=== PATIENT | male | born 1955 | race Caucasian/White ===

== ENCOUNTER 2020-09-28 06:39 | Outpatient (REF) | payer OTHER, SELFPAY ==
[2020-09-28 07:50] LABS: Alanine Aminotransferase 41 U/L (0-40); Aspartate Amino Transferase 24 U/L (5-37); Cholesterol 168 mg/dL; HDL Cholesterol 48 mg/dL; LDL Cholesterol Calculated 104 mg/dl; Triglycerides 81 mg/dL
== END 2020-09-28 06:40 | disposition home or self-care (01) ==
LOC: HO.LAB 06:39
PROVIDERS: PCP Internal Medicine; Visit Provider Internal Medicine
DX: E78.2 Mixed hyperlipidemia (principal)
CPT/HCPCS: 36415; 80061; 84450; 84460

== ENCOUNTER 2021-09-07 07:17 | Day surgery (SDC) | payer OTHER, SELFPAY ==
[2021-08-31 12:51] VITALS: BMI 28.6
--- NOTE | 2021-09-06 14:03 | P.CONAN_ITS ---
Documented by User: Susan Staples NP 09/06/21 14:03 HPI - Anesthesia Eval Consult details Narrative: 66yo M for Colonoscopy [facility] Past Medical History Medical History (Updated 08/31/21 @ 12:47 by Cheryl Rasmussen RN) DVT (deep venous thrombosis) Elevated cholesterol GERD (gastroesophageal reflux disease) Surgical History Surgical History (Updated 08/31/21 @ 12:46 by Cheryl Rasmussen RN) H/O colonoscopy History of ankle surgery History of esophagogastroduodenoscopy (EGD) History of open reduction and internal fixation (ORIF) procedure History of surgical removal of pilonidal cyst Hx of appendectomy Hx of arthroscopic knee surgery Hx of nasal septoplasty Social History Social History Patient Tobacco Use Status: Tobacco use Unknown Advance Directives: No Advance Directives Information Provided: Yes Advance Directives on File: No Meds Allergies Allergy/AdvReac Type Severity Reaction Status Date / Time No Known Allergies Allergy Verified 09/07/21 06:04 [No Known Allergies*] Home Medications Medication Instructions Recorded Confirmed Last Taken Type omeprazole 20 mg capsule,delayed 20 mg PO DAILY 08/31/21 08/31/21 Unknown History release simvastatin 1 tab PO DAILY 08/31/21 08/31/21 Unknown History Exam Exam Date and Time: September 06, 2021 1403 Height,Weight and Vital Signs: Height 6 ft 1.5 in Weight 99.79 kg Assessment and Plan Assessment Anesthesia Assessment: Chart Reviewed Documented by User: Herberth Mayer MD 09/08/21 21:49 HPI - Anesthesia Eval Consult details Narrative: 66yo M for Colonoscopy DVT on anti coagulation for few months [facility] Past Medical History Medical History (Updated 08/31/21 @ 12:47 by Cheryl Rasmussen RN) DVT (deep venous thrombosis) Elevated cholesterol GERD (gastroesophageal reflux disease) Family History Family history of problems with anesthesia: No Surgical History Surgical History (Updated 08/31/21 @ 12:46 by Cheryl Rasmussen RN) H/O colonoscopy History of ankle surgery History of esophagogastroduodenoscopy (EGD) History of open reduction and internal fixation (ORIF) procedure History of surgical removal of pilonidal cyst Hx of appendectomy Hx of arthroscopic knee surgery Hx of nasal septoplasty History of Problems with Anesthesia: Yes (Ponv ) Social History Social History Patient Tobacco Use Status: Tobacco use Unknown Advance Directives: No Advance Directives Information Provided: Yes Advance Directives on File: No Meds Allergies Allergy/AdvReac Type Severity Reaction Status Date / Time No Known Allergies Allergy Verified 09/07/21 06:04 [No Known Allergies*] Home Medications Medication Instructions Recorded Confirmed Last Taken Type omeprazole 20 mg capsule,delayed 20 mg PO DAILY 08/31/21 08/31/21 Unknown History release simvastatin 1 tab PO DAILY 08/31/21 08/31/21 Unknown History Exam Airway Mallampati Class: III TM Dist: >3cm Neck ROM: Full Loose/Missing/Broken Teeth: Yes (Caps) Heart: rrr Lungs: bl breath sounds Assessment and Plan Assessment Anesthesia Assessment: Anesthesia Plan Discussed Final Anesthetic Review Family History of Problems with Anesthesia: No History of Problems with Anesthesia: Yes (Ponv ) NPO: Yes ASA Class: II Final Preanesthetic Review: Meds/Allgs Chart Reviewed, Consent Obtained/Reviewed and Anes Risks/Benef Reviewed Patient Risk: Intermediate Procedure Risk: Intermediate Anesthetic Plan Anesthetic Plan: MAC: Disposition: Standard PACU Documented by User: Ruthann Arreola MD 09/07/21 08:49 HPI - Anesthesia Eval Consult details Narrative: 66yo M for Colonoscopy DVT on anti coagulation for 5 months 7 years ago [facility] Past Medical History Medical History (Updated 08/31/21 @ 12:47 by Cheryl Rasmussen RN) DVT (deep venous thrombosis) Elevated cholesterol GERD (gastroesophageal reflux disease) Family History Family history of problems with anesthesia: Yes Surgical History Surgical History (Updated 08/31/21 @ 12:46 by Cheryl Rasmussen RN) H/O colonoscopy History of ankle surgery History of esophagogastroduodenoscopy (EGD) History of open reduction and internal fixation (ORIF) procedure History of surgical removal of pilonidal cyst Hx of appendectomy Hx of arthroscopic knee surgery Hx of nasal septoplasty Social History Social History Patient Tobacco Use Status: Tobacco use Unknown Advance Directives: No Advance Directives Information Provided: Yes Advance Directives on File: No Meds Allergies Allergy/AdvReac Type Severity Reaction Status Date / Time No Known Allergies Allergy Verified 09/07/21 06:04 [No Known Allergies*] Home Medications Medication Instructions Recorded Confirmed Last Taken Type omeprazole 20 mg capsule,delayed 20 mg PO DAILY 08/31/21 08/31/21 Unknown History release simvastatin 1 tab PO DAILY 08/31/21 08/31/21 Unknown History Assessment and Plan Final Anesthetic Review Family History of Problems with Anesthesia: Yes
[2021-09-07 07:19] VITALS: BP 162/91; PULSE 86; RESP 16; TEMP 36.6; O2SAT 98
[2021-09-07] MEDS: Lactated Ringers 1,000 ML 100 ML IVCONT (07:38)
--- NOTE | 2021-09-07 09:35 | P.BOP_ITS ---
Brief Operative Note Date of Service: 09/07/21 Pre-op diagnosis: Screening Post-op diagnosis: other (Colon polyp) Procedure: Colonoscopy to the cecum and TI with bx/removal of polyp. Surgeon: Toby Vizcaino Anesthesia: MAC Was an Senior Network Administrator used for this Procedure?: No Estimated blood loss (mL): 2.0 Pathology: other (A. Transverse colon polyp) Condition: stable Disposition: PACU
[2021-09-07 09:39] VITALS: BP 109/74; PULSE 63; RESP 17; TEMP 36.2; O2SAT 98
[2021-09-07 09:54] VITALS: BP 122/82; PULSE 66; RESP 18; TEMP 36.4; O2SAT 95
--- NOTE | 2021-09-07 10:04 | OP_ITS ---
SURGEON: Toby Vizcaino MD INDICATIONS: The patient presents for evaluation of personal history of tubular adenoma of the colon and colorectal cancer screening. Full consent has been obtained from him for this, including risks of bleeding and perforation. PREOPERATIVE DIAGNOSIS: Colorectal cancer screening and personal history of tubular adenoma of the colon. POSTOPERATIVE DIAGNOSIS: PROCEDURE PERFORMED: Colonoscopy to the cecum and terminal ileum with biopsy and removal of polyp. ESTIMATED BLOOD LOSS: COMPLICATIONS: ANESTHESIA: Medication used, monitored anesthesia care. ASSISTANTS: SPECIMENS: POSTOPERATIVE DIAGNOSES: Colorectal cancer screening and personal history of tubular adenoma of the colon, small colon polyp, diverticulosis, internal hemorrhoids. DESCRIPTION OF PROCEDURE: The patient was placed in the left lateral decubitus position. The digital rectal exam revealed no abnormalities. The Olympus video pediatric colonoscope was entered into the rectum and advanced easily to the cecum. Once in the cecum, I did identify normal-appearing cecal pouch with appendiceal orifice and a normal-appearing ileocecal valve. The terminal ileum was cannulated and appeared normal. Scope was withdrawn back in the colon. The entire cecum and ileocecal valve appeared normal. The scope was slowly withdrawn assessing all mucosal surfaces carefully. Preparation was excellent. In the transverse colon was an approximately 3 mm polyp, which was biopsied and completely removed with cold biopsy forceps. I did not visualize any other polyps, colitis, or angiodysplasia. There was a moderate amount of sigmoid diverticulosis. In the rectum, scope was retroflexed visualizing internal hemorrhoids, but no other pathology. The rectal mucosa appeared normal. The scope was straightened and withdrawn from the patient. He tolerated the procedure well and was returned to recovery area in stable condition. IMPRESSION: 1. Small colon polyp, status post biopsy and removal. 2. Diverticulosis. 3. Internal hemorrhoids. PLAN: The results of the biopsy will be checked. I would recommend a repeat colonoscopy in 5 years for further surveillance. He will otherwise see me on a p.r.n. basis. MD SANJAY Arnold/TREVOR / [id number]
--- NOTE | 2021-09-07 10:08 | PC.NURSE ---
OOB TO DRESS. AMBULATED TO BATHROOM SAFELY. NO COMPLAINTS.
== END 2021-09-07 10:21 | disposition home or self-care (01) ==
PROVIDERS: PCP Internal Medicine; Visit Provider Internal Medicine
PROC: 0DJD8ZZ Inspection of Lower Intestinal Tract, Via Natural or Artificial Opening Endoscopic (ICD-10-PCS; CPT 45378; principal; 2021-09-07 08:20)
DX: Z12.11 Encounter for screening for malignant neoplasm of colon (principal); Z86.010 Personal history of colon polyps; D12.3 Benign neoplasm of transverse colon; K57.30 Diverticulosis of large intestine without perforation or abscess without bleeding; K64.8 Other hemorrhoids; E78.5 Hyperlipidemia, unspecified; Z79.899 Other long term (current) drug therapy; Z86.718 Personal history of other venous thrombosis and embolism
CPT/HCPCS: 45380; 88305

== ENCOUNTER 2021-10-04 06:54 | Outpatient (REF) | payer OTHER, SELFPAY ==
[2021-10-04 07:16] LABS: MANUAL DIFF FLAG NO
[2021-10-04 07:35] LABS: Basophils Percent Auto 0.7 % (0-2); Eosinophils Absolute Auto 0.1 X10*3/uL (0.0-0.4); Eosinophils Percent Auto 1.4 % (0-4); Hematocrit 47.9 % (42.0-52.0); Hemoglobin 15.8 g/dl (14.0-18.0); Imm Gran Abs Auto 0.01 X10*3/uL (0.00-0.03); Imm Gran Pct Auto 0.2 % (0.0-0.4); Lymphocytes Absolute Auto 1.9 X10*3/uL (1.2-4.9); Lymphocytes Percent Auto 32.9 % (20-40); Mean Corpuscular Hemoglobin 31.9 pg (27.0-33.0); Mean Corpuscular Volume 96.8 fL (80.0-98.0); Mean Platelet Volume 10.4 fL (9.4-12.4); Monocytes Absolute Auto 0.5 X10*3/uL (0.1-1.2); Monocytes Percent Auto 9.2 % (2-11); Neutrophils Absolute Auto 3.2 x10*3/uL (2.0-8.3); Neutrophils Percent Auto 55.6 % (45-73); Platelet Count 271 X10*3/uL (160-400); Red Blood Count 4.95 X10*6/uL (4.60-5.80); Red Cell Distribution Width 12.2 % (11.0-16.0); White Blood Count 5.7 X10*3/uL (4.8-10.8)
[2021-10-04 07:53] LABS: Estimated Average Glucose 126 mg/dL
[2021-10-04 08:03] LABS: Alanine Aminotransferase 38 U/L (0-40); Albumin Level 4.3 g/dL (3.5-5.0); Alkaline Phosphatase 81 U/L (39-117); Anion Gap 11 (12-20); Aspartate Amino Transferase 23 U/L (5-37); Bilirubin Total 0.8 mg/dL (0.0-1.0); Blood Urea Nitrogen 19 mg/dL (9-16); Calcium 9.9 mg/dL (8.4-10.2); Carbon Dioxide 29 mmol/L (22-29); Chloride 106 mmol/L (96-108); Cholesterol 181 mg/dL; Estimated Glomerular Filt Rate > 60; Glucose Random 121 mg/dL (60-115); HDL Cholesterol 46 mg/dL; LDL Cholesterol Calculated 113 mg/dl; Potassium 5.3 mmol/L (3.3-5.1); Sodium 141 mmol/L (135-145); Total Protein 7.1 g/dL (6.5-8.0); Triglycerides 110 mg/dL
[2021-10-04 08:17] LABS: HIV AB/AG Nonreactive (Nonreactive); HIV Num 1 0.05 S/CO (0.00-0.99); ~HepC Num1 0.06 S/CO (0.00-0.79); ~Hepatitis C Antibody Nonreactive (Nonreactive)
[2021-10-04 08:24] LABS: Prostate Specific Antigen 1.29 ng/mL (<0.05-4.0); Thyroid Stimulating Hormone 1.48 uIU/mL (0.32-4.0)
[2021-10-04 09:03] LABS: Appearance Urine CLEAR; Color Urine YELLOW; Glucose Urine UA NEG (NEG); Leukocyte Esterase Urine NEG (NEG); Nitrite Urine NEG (NEG); PH 5.5 (5.0-8.0); Specific Gravity - Urine >= 1.030 (1.005-1.025); Urine Blood NEG (NEG); Urine Ketones NEG (NEG); Urine Protein NEG (NEG-TRACE)
== END 2021-10-04 06:55 | disposition home or self-care (01) ==
LOC: HO.LAB 06:54
PROVIDERS: PCP Internal Medicine; Visit Provider Internal Medicine
DX: Z12.5 Encounter for screening for malignant neoplasm of prostate (principal); Z11.4 Encounter for screening for human immunodeficiency virus [HIV]; Z11.59 Encounter for screening for other viral diseases; E78.00 Pure hypercholesterolemia, unspecified; R53.81 Other malaise; R53.83 Other fatigue; R35.1 Nocturia
CPT/HCPCS: 36415; 80053; 80061; 81003; 83036; 84153; 84443; 85025; 86803; 87086; 87389

== ENCOUNTER 2022-01-11 06:47 | Outpatient (REF) | payer OTHER, SELFPAY ==
[2022-01-11 07:36] LABS: Estimated Average Glucose 126 mg/dL
[2022-01-11 07:45] LABS: Anion Gap 10 (12-20); Blood Urea Nitrogen 15 mg/dL (9-16); Calcium 9.4 mg/dL (8.4-10.2); Carbon Dioxide 30 mmol/L (22-29); Chloride 104 mmol/L (96-108); Estimated Glomerular Filt Rate > 60; Glucose Random 111 mg/dL (60-115); Potassium 4.7 mmol/L (3.3-5.1); Sodium 139 mmol/L (135-145)
== END 2022-01-11 06:48 | disposition home or self-care (01) ==
LOC: HO.LAB 06:47
PROVIDERS: PCP Internal Medicine; Visit Provider Internal Medicine
DX: I10 Essential (primary) hypertension (principal); R73.01 Impaired fasting glucose
CPT/HCPCS: 36415; 80048; 83036

== ENCOUNTER 2022-02-16 10:11 | Outpatient (REF) | payer OTHER, SELFPAY ==
--- NOTE | ~2022-02-16 | XR_ITS ---
EXAMINATION: XR ABDOMEN COMPLETE CLINICAL INDICATION: Constipation. COMPARISON: None TECHNIQUE: 2 views of the abdomen. FINDINGS: There is a nonobstructive bowel gas pattern. Mild to moderate stool seen within the colon distally to the rectum. No abnormal calcifications are seen. Mild multilevel degenerative changes in the thoracolumbar spine and hips bilaterally. Left hip hardware appears intact. XR/XR acute abdomen series IMPRESSION: Nonobstructive bowel gas pattern. Mild to moderate colonic stool burden.
== END 2022-02-16 10:12 | disposition home or self-care (01) ==
LOC: HO.XRAY 10:11
PROVIDERS: PCP Internal Medicine; Visit Provider Internal Medicine
DX: K59.00 Constipation, unspecified (principal)
CPT/HCPCS: 74022

== ENCOUNTER 2022-03-08 11:28 | Outpatient (REF) | payer OTHER, SELFPAY ==
[2022-03-08 11:37] LABS: MANUAL DIFF FLAG NO
[2022-03-08 11:51] LABS: Basophils Absolute Auto 0.1 X10*3/uL (0.0-0.2); Basophils Percent Auto 0.9 % (0-2); Eosinophils Absolute Auto 0.1 X10*3/uL (0.0-0.4); Hematocrit 44.8 % (42.0-52.0); Hemoglobin 15.1 g/dl (14.0-18.0); Imm Gran Abs Auto 0.01 X10*3/uL (0.00-0.03); Imm Gran Pct Auto 0.2 % (0.0-0.4); Lymphocytes Absolute Auto 1.5 X10*3/uL (1.2-4.9); Lymphocytes Percent Auto 26.3 % (20-40); Mean Corpuscular HGB Conc 33.7 g/dl (31.0-36.0); Mean Corpuscular Hemoglobin 31.7 pg (27.0-33.0); Mean Corpuscular Volume 94.1 fL (80.0-98.0); Mean Platelet Volume 10.1 fL (9.4-12.4); Monocytes Absolute Auto 0.4 X10*3/uL (0.1-1.2); Neutrophils Absolute Auto 3.6 x10*3/uL (2.0-8.3); Neutrophils Percent Auto 63.6 % (45-73); Platelet Count 265 X10*3/uL (160-400); Red Blood Count 4.76 X10*6/uL (4.60-5.80); Red Cell Distribution Width 12.3 % (11.0-16.0); White Blood Count 5.6 X10*3/uL (4.8-10.8)
[2022-03-08 12:21] LABS: Alanine Aminotransferase 36 U/L (0-40); Albumin Level 4.1 g/dL (3.5-5.0); Alkaline Phosphatase 67 U/L (39-117); Anion Gap 14 (12-20); Aspartate Amino Transferase 25 U/L (5-37); Bilirubin Direct 0.5 mg/dL (0.0-0.5); Bilirubin Total 1.3 mg/dL (0.0-1.0); Blood Urea Nitrogen 16 mg/dL (9-16); Calcium 9.2 mg/dL (8.4-10.2); Carbon Dioxide 27 mmol/L (22-29); Chloride 105 mmol/L (96-108); Estimated Glomerular Filt Rate > 60; Glucose Random 156 mg/dL (60-115); Magnesium 1.9 mg/dL (1.6-2.6); Potassium 4.9 mmol/L (3.3-5.1); Sodium 141 mmol/L (135-145); Total Protein 6.9 g/dL (6.5-8.0)
[2022-03-08 12:44] LABS: T4 Thyroxine 6.1 ug/dL (4.5-12.0); Thyroid Stimulating Hormone 0.85 uIU/mL (0.32-4.0)
[2022-03-10 11:36] LABS: Immunoglobulin A 363 mg/dL (70-320)
[2022-03-10 12:36] LABS: Gliadin Deamidated IgA Ab <1.0 U/mL; Gliadin Deamidated IgG Ab <1.0 U/mL; Transglutaminase Ab IgG <1.0 U/mL; Transglutaminase IgA <1.0 U/mL
[2022-03-15 15:02] LABS: Endomysial IgA Antibody Negative (Negative)
== END 2022-03-08 11:29 | disposition home or self-care (01) ==
LOC: HO.LAB 11:28
PROVIDERS: PCP Internal Medicine; Visit Provider Internal Medicine
DX: K59.00 Constipation, unspecified (principal)
CPT/HCPCS: 36415; 80053; 82248; 82784; 83735; 84436; 84443; 85025; 86231; 86258; 86364

== ENCOUNTER 2022-10-17 06:22 | Outpatient (REF) | payer OTHER, SELFPAY ==
[2022-10-17 06:34] LABS: MANUAL DIFF FLAG NO
[2022-10-17 08:06] LABS: Basophils Absolute Auto 0.1 X10*3/uL (0.0-0.2); Basophils Percent Auto 1.2 % (0-2); Eosinophils Absolute Auto 0.1 X10*3/uL (0.0-0.4); Eosinophils Percent Auto 1.6 % (0-4); Hematocrit 44.4 % (42.0-52.0); Hemoglobin 14.7 g/dl (14.0-18.0); Imm Gran Abs Auto 0.01 X10*3/uL (0.00-0.03); Imm Gran Pct Auto 0.2 % (0.0-0.4); Lymphocytes Absolute Auto 1.9 X10*3/uL (1.2-4.9); Lymphocytes Percent Auto 36.5 % (20-40); Mean Corpuscular HGB Conc 33.1 g/dl (31.0-36.0); Mean Corpuscular Volume 96.5 fL (80.0-98.0); Mean Platelet Volume 10.9 fL (9.4-12.4); Monocytes Absolute Auto 0.5 X10*3/uL (0.1-1.2); Monocytes Percent Auto 9.4 % (2-11); Neutrophils Absolute Auto 2.6 x10*3/uL (2.0-8.3); Neutrophils Percent Auto 51.1 % (45-73); Platelet Count 263 X10*3/uL (160-400); Red Cell Distribution Width 12.6 % (11.0-16.0); White Blood Count 5.1 X10*3/uL (4.8-10.8)
[2022-10-17 08:40] LABS: Estimated Average Glucose 123 mg/dL; Hemoglobin A1c % 5.9 %
[2022-10-17 08:55] LABS: Appearance Urine Clear; Color Urine Yellow; Glucose Urine UA Negative (Negative); Leukocyte Esterase Urine Negative (Negative); Nitrite Urine Negative (Negative); PH 5.5 (5.0-9.0); Specific Gravity - Urine >= 1.030 (1.005-1.025); Urine Blood Negative (Negative); Urine Ketones Negative (Negative); Urine Protein Negative (Neg-Trace)
[2022-10-17 09:42] LABS: Alanine Aminotransferase 27 U/L (0-40); Albumin Level 4.1 g/dL (3.5-5.0); Alkaline Phosphatase 70 U/L (39-117); Anion Gap 12 (12-20); Aspartate Amino Transferase 20 U/L (5-37); Bilirubin Total 1.1 mg/dL (0.0-1.0); Blood Urea Nitrogen 18 mg/dL (9-16); Calcium 9.1 mg/dL (8.4-10.2); Carbon Dioxide 28 mmol/L (22-29); Chloride 107 mmol/L (96-108); Cholesterol 161 mg/dL; Estimated Glomerular Filt Rate > 60; Glucose Random 96 mg/dL (60-115); HDL Cholesterol 46 mg/dL; LDL Cholesterol Calculated 101 mg/dl; Potassium 4.5 mmol/L (3.3-5.1); Sodium 142 mmol/L (135-145); Total Protein 6.4 g/dL (6.5-8.0); Triglycerides 70 mg/dL
[2022-10-17 09:46] LABS: Prostate Specific Antigen Scr 0.88 ng/mL (<0.05-4.0); Thyroid Stimulating Hormone 1.61 uIU/mL (0.32-4.0)
== END 2022-10-17 06:23 | disposition home or self-care (01) ==
LOC: HO.LAB 06:22
PROVIDERS: PCP Internal Medicine; Visit Provider Internal Medicine
DX: G47.33 Obstructive sleep apnea (adult) (pediatric) (principal); E78.00 Pure hypercholesterolemia, unspecified; R73.01 Impaired fasting glucose; Z12.5 Encounter for screening for malignant neoplasm of prostate
CPT/HCPCS: 36415; 80053; 80061; 81003; 83036; 84153; 84443; 85025

== ENCOUNTER 2022-12-11 08:12 | Outpatient (REF) | payer OTHER, SELFPAY ==
[2022-12-11 08:38] LABS: MANUAL DIFF FLAG NO
[2022-12-11 09:05] LABS: Basophils Absolute Auto 0.1 X10*3/uL (0.0-0.2); Basophils Percent Auto 0.9 % (0-2); Eosinophils Absolute Auto 0.1 X10*3/uL (0.0-0.4); Eosinophils Percent Auto 1.1 % (0-4); Hematocrit 45.7 % (42.0-52.0); Hemoglobin 15.1 g/dl (14.0-18.0); Imm Gran Abs Auto 0.02 X10*3/uL (0.00-0.03); Imm Gran Pct Auto 0.4 % (0.0-0.4); Lymphocytes Absolute Auto 1.4 X10*3/uL (1.2-4.9); Lymphocytes Percent Auto 24.1 % (20-40); Mean Corpuscular Hemoglobin 31.3 pg (27.0-33.0); Mean Corpuscular Volume 94.8 fL (80.0-98.0); Mean Platelet Volume 10.6 fL (9.4-12.4); Monocytes Absolute Auto 0.5 X10*3/uL (0.1-1.2); Monocytes Percent Auto 8.8 % (2-11); Neutrophils Absolute Auto 3.6 x10*3/uL (2.0-8.3); Neutrophils Percent Auto 64.7 % (45-73); Platelet Count 257 X10*3/uL (160-400); Red Blood Count 4.82 X10*6/uL (4.60-5.80); Red Cell Distribution Width 12.2 % (11.0-16.0); White Blood Count 5.6 X10*3/uL (4.8-10.8)
== END 2022-12-11 08:13 | disposition home or self-care (01) ==
LOC: HO.LAB 08:12
PROVIDERS: PCP Internal Medicine; Visit Provider Internal Medicine
DX: R10.32 Left lower quadrant pain (principal)
CPT/HCPCS: 36415; 85025

== ENCOUNTER 2022-12-19 07:30 | Outpatient (REF) | payer OTHER, SELFPAY ==
[2022-12-19 08:46] LABS: Alanine Aminotransferase 26 U/L (0-40); Alkaline Phosphatase 67 U/L (39-117); Anion Gap 11 (12-20); Aspartate Amino Transferase 19 U/L (5-37); Bilirubin Total 1.1 mg/dL (0.0-1.0); Blood Urea Nitrogen 16 mg/dL (9-16); Calcium 9.3 mg/dL (8.4-10.2); Carbon Dioxide 27 mmol/L (22-29); Chloride 108 mmol/L (96-108); Estimated Glomerular Filt Rate > 60; Glucose Random 115 mg/dL (60-115); Potassium 4.6 mmol/L (3.3-5.1); Sodium 141 mmol/L (135-145); Total Protein 6.6 g/dL (6.5-8.0)
== END 2022-12-19 07:31 | disposition home or self-care (01) ==
LOC: HO.LAB 07:30
PROVIDERS: PCP Internal Medicine; Visit Provider Internal Medicine
DX: R10.32 Left lower quadrant pain (principal)
CPT/HCPCS: 36415; 80053

== ENCOUNTER 2022-12-21 08:22 | Outpatient (REF) | payer OTHER, SELFPAY ==
--- NOTE | ~2022-12-21 | CT_ITS ---
EXAMINATION: CT ABDOMEN AND PELVIS WITH CONTRAST CLINICAL INFORMATION: Diverticulitis COMPARISON: Previous CT of the abdomen and pelvis December 2016 TECHNIQUE: Multidetector volumetric images were obtained from the superior aspect of the liver through the pubic symphysis following administration 85 mL of Omnipaque 350 intravenous contrast. Sagittal and coronal reformatted images were obtained on the technologist's workstation. Oral contrast: Yes This CT examination was performed using dose optimization techniques as appropriate, variously including the following: *Automated exposure control *Adjustment of mA and/or kV according to patient size (this includes techniques or standardized protocols for targeted exams where dose is matched to indication/reason for exam; i.e. extremities or head) *Use of iterative reconstruction technique DLP: 500 mGy-cm FINDINGS: LUNG BASES: The visualized lung bases are unremarkable. LIVER, GALLBLADDER, AND BILIARY TREE: The liver is normal in size, shape, and attenuation. No focal hepatic lesion or biliary ductal dilatation is present. The gallbladder is unremarkable with no evidence of radiopaque gallstones, gallbladder wall thickening, or obvious pericholecystic inflammatory changes. PANCREAS: Unremarkable. SPLEEN: Unremarkable. ADRENAL GLANDS: Unremarkable. KIDNEYS AND URETERS: The kidneys are normal in size, shape, and attenuation. No hydronephrosis, hydroureter, or calculi seen. No perinephric stranding. BLADDER: Unremarkable. GASTROINTESTINAL TRACT: Diverticulosis. No evidence of diverticulitis. The small and large bowel are otherwise unremarkable. The appendix is not seen. ABDOMINAL WALL: No significant hernia is appreciated. LYMPH NODES: Normal. VASCULAR: Unremarkable. PELVIC VISCERA: Unremarkable. OSSEOUS STRUCTURES: Surgical hardware in the left proximal femur. Degenerative changes at the hip joints and spine. Small sclerotic lesion in the left iliac bone near the sacroiliac joint stable from [address]/CT abdomen pelvis w IV con IMPRESSION: Diverticulosis. No evidence of diverticulitis. Fleischner guidelines were followed.
[2022-12-21] MEDS: Barium Sulfate Oral (Berry) 450 ML ORAL.SUSP 900 ML PO (10:54)
[2022-12-21] MEDS: iohexoL 350 MG/ML 100 ML INFUS..BTL 85 ML IV (10:54)
== END 2022-12-21 08:23 | disposition home or self-care (01) ==
LOC: HO.CT 08:22
PROVIDERS: PCP Internal Medicine; Visit Provider Internal Medicine
DX: R10.32 Left lower quadrant pain (principal); K57.92 Diverticulitis of intestine, part unspecified, without perforation or abscess without bleeding; K59.00 Constipation, unspecified
CPT/HCPCS: 74177; Q9967

== ENCOUNTER 2023-10-01 07:15 | Outpatient (REF) | payer OTHER, SELFPAY ==
[2023-10-01 07:32] LABS: MANUAL DIFF FLAG NO
[2023-10-01 07:43] LABS: Appearance Urine Clear; Color Urine Yellow; Glucose Urine UA Negative (Negative); Leukocyte Esterase Urine Negative (Negative); Nitrite Urine Negative (Negative); Specific Gravity - Urine 1.025 (1.005-1.025); Urine Blood Negative (Negative); Urine Ketones Negative (Negative); Urine Protein Negative (Neg-Trace)
[2023-10-01 07:45] LABS: Basophils Absolute Auto 0.1 X10*3/uL (0.0-0.2); Basophils Percent Auto 0.8 % (0-2); Eosinophils Absolute Auto 0.1 X10*3/uL (0.0-0.4); Eosinophils Percent Auto 1.6 % (0-4); Hemoglobin 15.2 g/dl (14.0-18.0); Imm Gran Abs Auto 0.01 X10*3/uL (0.00-0.03); Imm Gran Pct Auto 0.2 % (0.0-0.4); Lymphocytes Absolute Auto 2.2 X10*3/uL (1.2-4.9); Lymphocytes Percent Auto 35.8 % (20-40); Mean Corpuscular HGB Conc 33.8 g/dl (31.0-36.0); Mean Corpuscular Hemoglobin 31.6 pg (27.0-33.0); Mean Corpuscular Volume 93.6 fL (80.0-98.0); Mean Platelet Volume 10.1 fL (9.4-12.4); Monocytes Absolute Auto 0.5 X10*3/uL (0.1-1.2); Monocytes Percent Auto 7.5 % (2-11); Neutrophils Absolute Auto 3.3 x10*3/uL (2.0-8.3); Neutrophils Percent Auto 54.1 % (45-73); Platelet Count 306 X10*3/uL (160-400); Red Blood Count 4.81 X10*6/uL (4.60-5.80); Red Cell Distribution Width 12.3 % (11.0-16.0); White Blood Count 6.2 X10*3/uL (4.8-10.8)
[2023-10-01 07:49] LABS: Estimated Average Glucose 120 mg/dL; Hemoglobin A1c % 5.8 % (<6.0)
[2023-10-01 08:13] LABS: Alanine Aminotransferase 30 U/L (0-40); Albumin Level 4.2 g/dL (3.5-5.0); Alkaline Phosphatase 71 U/L (39-117); Anion Gap 12 (12-20); Aspartate Amino Transferase 21 U/L (5-37); Bilirubin Total 1.1 mg/dL (0.0-1.0); Blood Urea Nitrogen 18 mg/dL (9-16); Calcium 9.5 mg/dL (8.4-10.2); Carbon Dioxide 30 mmol/L (22-29); Chloride 106 mmol/L (96-108); Cholesterol 160 mg/dL (<200); Estimated Glomerular Filt Rate > 60; Glucose Random 112 mg/dL (60-115); HDL Cholesterol 44 mg/dL (>40); LDL Cholesterol Calculated 98 mg/dL (<100); Potassium 4.7 mmol/L (3.3-5.1); Sodium 143 mmol/L (135-145); Total Protein 7.2 g/dL (6.5-8.0); Triglycerides 93 mg/dL (<150)
[2023-10-01 08:26] LABS: Prostate Specific Antigen Scr 0.94 ng/mL (<0.05-4.0)
[2023-10-01 08:30] LABS: Free T4 (Free Thyroxine) 0.94 ng/dL (0.71-1.85); Thyroid Stimulating Hormone 2.05 uIU/mL (0.32-4.0)
== END 2023-10-01 07:16 | disposition home or self-care (01) ==
LOC: HO.LAB 07:15
PROVIDERS: PCP Internal Medicine; Visit Provider Internal Medicine
DX: Z12.5 Encounter for screening for malignant neoplasm of prostate (principal); E78.00 Pure hypercholesterolemia, unspecified; R35.1 Nocturia; R73.01 Impaired fasting glucose
CPT/HCPCS: 36415; 80053; 80061; 81003; 83036; 84153; 84439; 84443; 85025

== ENCOUNTER 2024-11-04 07:11 | Outpatient (REF) | payer OTHER, MEDICARE, SELFPAY ==
[2024-11-04 07:53] LABS: Basophils Absolute Auto 0.1 X10*3/uL (0.0-0.2); Eosinophils Absolute Auto 0.1 X10*3/uL (0.0-0.4); Eosinophils Percent Auto 1.7 % (0-4); Hematocrit 43.3 % (42.0-52.0); Hemoglobin 14.5 g/dl (14.0-18.0); Imm Gran Abs Auto 0.01 X10*3/uL (0.00-0.03); Imm Gran Pct Auto 0.2 % (0.0-0.4); Lymphocytes Absolute Auto 1.9 X10*3/uL (1.2-4.9); Lymphocytes Percent Auto 32.6 % (20-40); MANUAL DIFF FLAG NO; Mean Corpuscular HGB Conc 33.5 g/dl (31.0-36.0); Mean Corpuscular Hemoglobin 32.2 pg (27.0-33.0); Mean Corpuscular Volume 96.2 fL (80.0-98.0); Mean Platelet Volume 10.3 fL (9.4-12.4); Monocytes Absolute Auto 0.6 X10*3/uL (0.1-1.2); Monocytes Percent Auto 9.8 % (2-11); Neutrophils Absolute Auto 3.2 x10*3/uL (2.0-8.3); Neutrophils Percent Auto 54.7 % (45-73); Platelet Count 254 X10*3/uL (160-400); White Blood Count 5.8 X10*3/uL (4.8-10.8)
[2024-11-04 08:20] LABS: Alanine Aminotransferase 30 U/L (0-40); Alkaline Phosphatase 80 U/L (39-117); Anion Gap 10 (12-20); Aspartate Amino Transferase 25 U/L (5-37); Bilirubin Total 0.8 mg/dL (0.0-1.0); Blood Urea Nitrogen 17 mg/dL (9-16); Calcium 9.2 mg/dL (8.4-10.2); Carbon Dioxide 27 mmol/L (22-29); Chloride 109 mmol/L (96-108); Cholesterol 143 mg/dL (<200); Estimated Glomerular Filt Rate > 60; Glucose Random 126 mg/dL (60-115); HDL Cholesterol 42 mg/dL (>40); LDL Cholesterol Calculated 83 mg/dL (<100); Potassium 4.4 mmol/L (3.3-5.1); Sodium 142 mmol/L (135-145); Total Protein 6.6 g/dL (6.5-8.0); Triglycerides 92 mg/dL (<150)
[2024-11-04 08:30] LABS: Estimated Average Glucose 128 mg/dL; Hemoglobin A1C 165.9787 umol/L; Hemoglobin A1c % 6.1 % (<6.0); Total Hemoglobin (HGBA1C) 3860.7199 umol/L
[2024-11-04 08:36] LABS: Prostate Specific Antigen Scr 1.66 ng/mL (<0.05-4.0)
== END 2024-11-04 07:12 | disposition home or self-care (01) ==
LOC: HO.LAB 07:11
PROVIDERS: PCP Internal Medicine; Visit Provider Internal Medicine
DX: R73.01 Impaired fasting glucose (principal); R35.1 Nocturia; Z13.220 Encounter for screening for lipoid disorders; Z12.5 Encounter for screening for malignant neoplasm of prostate
CPT/HCPCS: 36415; 80053; 80061; 83036; 84153; 85025

== ENCOUNTER 2025-04-01 21:45 | Emergency (ER) | payer OTHER, MEDICARE, SELFPAY ==
--- NOTE | ~2025-04-01 | US_ITS ---
CLINICAL HISTORY: torsion, severe left pain US scrotum with Doppler Comparison: None provided Findings: Right testicle is normal in size and echogenicity measuring 4.6 x 2.8 x 4 cm. There is normal color flow and arterial/venous spectral tracing in the right testicle. The right epididymis appears normal. There is a small right hydrocele. There is no right varicocele. Left testicle is normal in size and echogenicity measuring 4.3 x 2.5 x 3.1 cm. There is an incidental small left appendix testis measuring 3 mm. There is normal color flow and arterial/venous spectral tracing in the left testicle. There is an incidental small exophytic left epididymal cyst. Left epididymis appears otherwise normal. There is a small left hydrocele. There is no left varicocele. IMPRESSION: 1. No testicular torsion. 2. Small bilateral hydroceles. This document has been electronically signed by: Marco Watson MD on 04/02/2025 04:54:50
--- NOTE | ~2025-04-01 | CT_ITS ---
CLINICAL HISTORY: LLQ to left groin pain severe CT abdomen and pelvis with contrast Comparison: CT - CT ABDOMEN PELVIS W IV CON - 04/01/25 23:26 EDT Findings: There is mild atelectasis. There is coronary artery calcification. The liver, gallbladder, pancreas, spleen, adrenal glands, and kidneys are unremarkable. There is colonic diverticulosis. There is no acute diverticulitis. The gastrointestinal tract is otherwise unremarkable. There are no enlarged lymph nodes. The aorta is normal in diameter. There are degenerative changes in the lumbar spine. There is an old healed internally fixated proximal left femur fracture. There is no acute fracture or suspicious lytic or sclerotic lesion. IMPRESSION: 1. No acute abnormality in the abdomen or pelvis. 2. Chronic findings as above. This document has been electronically signed by: Marco Watson MD on 04/02/2025 01:38:04
--- OUTSIDE RECORDS SUMMARY | 2025-04-01 13:15 | XMS_ITS | Encounter Summary ---
Author Organization [facility] Address [address] [place] [address] Phone Care Team Providers Care Appeals Court Associate Justice Name Role Phone Jeremy Whalen MD Primary Care Provider [phone] Reason for Visit * Reason Comments Sick Visit Testicle Pain Left testicle starte d yesterday, sore Encounter Details Date Type Department Care Team (Late st Contact Info) Description 04/01/2025 1:15 PM EDT Office Visit [facility] Internal Medicine [address] [place] [address] Virgil Pelayo MD [address] [place] [address] [email or web address] Left testicular pain (Primary Dx) Social History Tobacco Use Types Packs/Day Years Used Date Smoking Tobacco: Never Smokeless Tobacco: Never Alcohol Use Standard Drinks/Week Comments Yes 7 (1 standard drink = 0.6 oz pur e alcohol) Child or Family Care Answer Date Record ed Do you have problems with on e of the following making it difficult for you to work, study, or receive health care? No 09/05/2024 Education Answer Date Recorded Are you interested in more education? Not on dimitri e 05/20/2024 Are you concerned about learning? Not on file 05/20/2024 No 05/20/2024 No 05/20/2024 Food Answer Date Recorded Within the past 6 months we worried whether our food would run out before we got money to buy more. Never True 09/05/2024 Within the past 6 months the food we bought just didn't last and we didn't have enough money to get more. Never True Residential Stability Answer Date Recor ded What is your housing situation today? I have mauro gonzalez 09/05/2024 How many times have you move d in the past 12 months? Zero (I did not move) 09/05/2024 Paying for Meds Answer Date Recorded Do you have trouble paying for medicines? No 09/05/2024 Paying Utility Bills Answer Date Record ed Do you have trouble paying your heating or elect ricity bill? No 09/05/2024 Transportation Answer Date Recorded Has the lack of transportati on kept you from medical appointments or from getting medications? No 09/05/2024 Unemployment Answer Date Recorded Are you currently unemployed or working on a part-time or temporary basis, and looking for work? No 05/19/2022 Digital Access Answer Date Recorded No 09/05/2024 Yes 09/05/2024 Do you have reliable internet access at home? Ye s 09/05/2024 Do you have a device (e.g., phone, tablet, computer) with a working camera? Yes 09/05/2024 Intimate Partner Violence Answer Date R ecorded Denied Basic Needs Not on file 09/05/2024 In the past 12 months have y ou been in a relationship with a person who hurts, threatens, or tries to control you? No 09/05/2024 Worried food would run out Not on file 09/05 In the past 12 months have y ou been in a relationship with a person who hurts, threatens, or tries to control you? No 09/05/2024 Sex and Gender Information Value Date Recorded Sex Assigned at Not on file Legal Sex Male 10:02 AM EDT Gender Identity Not on file Sexual Orientation Not on file documented as of this encounter Last Filed Vital Signs Vital Sign Reading Time Taken Comments Blood Pressure 112/74 04/01/2025 1:18 PM EDT Pulse 80 04/01/2025 1:18 PM EDT Temperature 36.3 C (97.3 F) 04/01/2025 1:18 PM EDT Respiratory Rate 16 04/01/2025 1:18 PM EDT Oxygen Saturation 98% 04/01/2025 1:18 PM EDT Inhaled Oxygen Concentration - - Weight 98.2 kg (216 lb 9.6 oz) 04/01/2025 1:18 P M EDT Height 185.9 cm (6' 1.19 ) 04/01/2025 1:18 PM ED T Body Mass Index 28.43 04/01/2025 1:18 PM EDT documented in this encounter Progress Notes * Virgil Pelayo MD - 04/01/2025 1:15 PM EDT Subjective: Patient ID: Arthur Mcdowell is a 69 y.o. male. This patient had on and off pain in the left testicle that seem to worsen with ambulation and improved with rest. 2 days ago it was not quite as bad and then yesterday is quite bad where it seemed wallace a little bit more constant. No problems with urination no urinary hesitancy frequency or nocturia. No blood in the urine. No flank pain. No fever or chills. Current Outpatient Medications Ordered in [facility]: atorvastatin (LIPITOR) 40 MG tablet, TAKE 1 TABLET BY MOUTH EVERY DAY pantoprazole (PROTONIX) 40 MG tablet, TAKE 1 TABLET (40 MG TOTAL) BY MOUTH 5 (FIVE) TIMES A WEEK. AT NIGHT. metroNIDAZOLE (ROSADAN) 0.75 % gel, Apply topically 2 (two) times a day. (Patient not taking: Reported on 04/01/2025) He continues on Lipitor for cholesterol, metronidazole for rosacea, pantoprazole for acid indigestion. Review of Systems Objective: Physical Exam Constitutional: General: He is not in acute distress. Appearance: Normal appearance. He is not ill-appearing, toxic-appearing or diaphoretic. Abdominal: General: Abdomen is flat. Palpations: Abdomen is soft. Tenderness: There is no rebound. Hernia: No hernia is present. Genitourinary: Penis: Normal. Testes: Normal. Comments: Negative for inguinal lymphadenopathy. Musculoskeletal: Right lower leg: No edema. Left lower leg: No edema. Skin: General: Skin is warm and dry. Findings: No bruising. Neurological: Mental Status: He is alert. Blood pressure 112/74, pulse 80, temperature 36.3 ??C (97.3 ??F), temperature source Temporal, resp. rate 16, height 185.9 cm (6' 1.19 ), weight 98.2 kg (216 lb 9.6 oz), SpO2 98%. Assessment/Plan: Problem List Items Addressed This Visit Left testicular pain - Primary Testicular pain, possibly epididymitis left-sided. Obtain ultrasounds of the scrotum with particular attention left-sided. Also today obtain CBC and CRP. If there are signs of epididymitis on ultrasound together with lab work will start antibiotic. For now treatment with Aleve 440 mg every 12 hoursas needed, cold packs 20 minutes on 10 minutes off. Relevant Orders US Scrotum C-Reactive Protein CBC documented in this encounter Miscellaneous Notes * Assessment & Plan Note - Virgil Pelayo MD - 04/01/2025 1:56 PM EDTAssociated Problem(s): Left testicular pain Testicular pain, possibly epididymitis left-sided. Obtain ultrasounds of the scrotum with particular attention left-sided. Also today obtain CBC and CRP. If there are signs of epididymitis on ultrasound together with lab work will start antibiotic. For now treatment with Aleve 440 mg every 12 hoursas needed, cold packs 20 minutes on 10 minutes off. documented in this encounter Plan of Treatment Upcoming Encounters Date Type Department Care Team (Late st Contact Info) Description 09/14/2025 8:30 AM EST Office Visit [facility] [place] Internal Medicine [address] [place] [phone] Jeremy Whalen MD [address] [place] [address] [email or web address] Scheduled Orders Name Type Priority Associated Diagnoses Orde r Schedule US Scrotum Imaging Routine Left testicular pain Expected: 04/02/2025, Expires: 07/01/2025 documented as of this encounter Results * (ABNORMAL) CBC (04/01/2025 1:57 PM EDT) WBC 5.56 4.00 - 11.00 K/uL [facility] RBC 4.57 4.50 - 5.90 M/uL [facility] HGB 14.7 13.5 - 17.5 g/dL [facility] HCT 44.0 41.0 - 53.0 % [facility] PLT 235 150 - 450 K/uL [facility] MCV 96.3 80.0 - 100.0 fL [facility] MCH 32.2(H) 27.0 - 31.0 pg [facility] MCHC 33.4 32.0 - 36.0 g/dL [facility] RDW 12.3 11.5 - 14.5 % [facility] MPV 10.9 8.4 - 12.0 fL [facility] NRBC 0.00 0.00 /100 WBCs [facility] ABSOLUTE NRBC 0.00 0.00 K/uL [facility] Blood 04/01/2025 1:57 PM EDT 04/01/2025 2:01 PM EDT Virgil Pelayo MD LAB BLOOD ORDERABLES Final Resul t Performing Organization Address City/[facility]/ZIP Co de Phone Number [address] [address] * C-Reactive Protein (04/01/2025 1:57 PM EDT) C REACTIVE PROTEIN <3.0 0.0 - 4.0 mg/L [facility] Blood 04/01/2025 1:57 PM EDT 04/01/2025 2:01 PM EDT Virgil Pelayo MD LAB BLOOD ORDERABLES Final Resul t Performing Organization Address City/[facility]/ZIP Co de Phone Number [address] [address] documented in this encounter Visit Diagnoses Diagnosis Left testicular pain- Primary documented in this encounter Additional Health Concerns Assessment Noted Time PHQ-2 Depression Total Score: 0 09/05/19 25 12:38 PM EST documented as of this encounter Care Teams Appeals Court Associate Justice Relationship Specialty Start Date End Date Jeremy Whalen MD [address] [place] [phone] [email or web address] PCP - General Internal Medicine 12/27/18 documented as of this encounter Additional Source Comments The information contained in this document represents components of the legal health record. It is not the complete legal health record.[facility]
--- OUTSIDE RECORDS SUMMARY | 2025-04-01 13:55 | XMS_ITS | Encounter Summary ---
Author Organization [facility] Address [address] [place] [phone] Phone Care Team Providers Care Design Cell Engineer Name Role Phone Jeremy Whalen MD Primary Care Provider [phone] Encounter Details Date Type Department Care Team (Late st Contact Info) Description 04/01/2025 1:55 PM EDT Hospital Encounter [facility] [address] [place] [address] Virgil Pelayo MD [address] [place] [address] [email or web address] Social History Tobacco Use Types Packs/Day Years [...] on file documented as of this encounter Plan of Treatment Upcoming Encounters Date Type Department Care Team (Late st Contact Info) Description 09/14/2025 8:30 AM EST Office Visit [facility] [place] Internal Medicine [address] [place] [address] Jeremy Whalen MD [address] [place] [address] [email or web address] documented as of this encounter Procedures Procedure Name Priority Date/Time Associated Diagnosis Comments CBC Routine 04/01/2025 1:57 PM EDT Left testicular pain C-REACTIVE PROTEIN Routine 04/01/2025 1: 57 PM EDT Left testicular pain documented in this encounter Results * C-Reactive Protein (04/01/2025 1:57 PM EDT) C REACTIVE PROTEIN <3.0 0.0 - 4.0 mg/L [facility] Blood 04/01/2025 1:57 PM EDT 04/01/2025 2:01 PM EDT us Virgil Pelayo MD LAB BLOOD ORDERABLES Final Resul t [address] [address] * (ABNORMAL) CBC (04/01/2025 1:57 PM EDT) WBC 5.56 4.00 - 11.00 K/uL [facility] RBC 4.57 4.50 - 5.90 M/uL [facility] HGB 14.7 13.5 - 17.5 g/dL [facility] HCT 44.0 41.0 - 53.0 % [facility] PLT 235 150 - 450 K/uL [facility] MCV 96.3 80.0 - 100.0 fL [facility] MCH 32.2(H) 27.0 - 31.0 pg [facility] MCHC 33.4 32.0 - 36.0 g/dL [facility] RDW 12.3 11.5 - 14.5 % [facility] MPV 10.9 8.4 - 12.0 fL [facility] NRBC 0.00 0.00 /100 WBCs [facility] ABSOLUTE NRBC 0.00 0.00 K/uL [facility] Blood 04/01/2025 1:57 PM EDT 04/01/2025 2:01 PM EDT us Virgil Pelayo MD LAB BLOOD ORDERABLES Final Resul t [facility] [address] [place] [address] documented in this encounter Visit Diagnoses Diagnosis Left testicular pain documented in this encounter Additional Health Concerns Assessment Noted Time PHQ-2 Depression Total Score: 0 09/05/19 25 12:38 PM EST documented as of this encounter Care Teams Design Cell Engineer Relationship Specialty Start Date End Date Jeremy Whalen MD [address] [place] [address] [email or web address] PCP - General Internal Medicine 12/27/18 documented as of this encounter Additional Source Comments The information contained in this document represents components of the legal health record. It is not the complete legal health record.[facility]
[2025-04-01 21:47] VITALS: BP 145/80; PULSE 64; RESP 18; TEMP 36.3; O2SAT 97; BMI 28.8
[2025-04-01 22:05] VITALS: BP 150/82; PULSE 68; RESP 16; TEMP 36.4; O2SAT 96
--- OUTSIDE RECORDS SUMMARY | 2025-04-01 22:06 | XMS_ITS | Patient Health Record ---
Author Organization [facility] Address [address] [place] [id number] Care Team Providers Care Surfboard Designer Name Role Phone Jeremy Whalen MD Primary Care Provider Toby Chong Unavailable [phone] Reason For Referral No Information Medications Medication SIG (Take, Route, Fr equency, Duration) Notes Start Date End Date Status Simvastatin Active Omeprazole 20 MG 1 capsule Orally Once a day 06/19 Active Immunizations Vaccine Route Administration Date Status Comme nts Influenza Unknown 04/22/2021 Administered Problems Problem Type SNOMED Code ICD Code Onset Dates Problem Status W/U Status Risk Notes Problem 955649428 Encounter for screening for malignant neoplasm of colon (Z12.11) Active confirmed Problem 643169930 History of adenomatous polyp of colon (Z86.010) Active confirmed Problem Constipation (88916515) Constipation (K59.00) Active confirmed Problem Change in bowel habit (31635041) Change in bowel habits (R19.4) Active confirmed Problem Screening for malignant neoplasm of rectum (839291759) Encounter for screening for malignant neoplasm of rectum (Z12.12) Active confirmed Problem 905340820 Gastroesophageal reflux disease without esophagitis (K21.9) Active confirmed Problem 005522484630770 Preprocedural examination (Z01.818) Active confirmed Problem Diverticulosis of colon (592173747) Diverticulosis of colon (K57.30) Active confirmed Plan Of Treatment Pending Test Test Name Order Date CHEM 7 PROFILE 02/20/2022 LIVER PROFILE 02/20/2022 TSH (THYROID STIMULATING HORMONE) 2021 CBC w DIFF 02/20/2022 CELIAC PANEL #10 02/20/2022 Calcium 02/20/2022 Magnesium 02/20/2022 T4 Thyroxine 02/20/2022 Future Test Test Name Order Date COLONOSCOPY 05/17/2016 COLONOSCOPY 08/02/2021 Insurance Providers Payer Name Payer Address Payer Phone Subscriber Number Group Number Insured Name Patient Relationship to Insured Coverage Start Date Coverage End Date [facility] [address] [place] [phone] [id number] [address] M[place] Self - patient is the insured Medical (General) History Medical History History ICD Code Hyperlipidemia Gastroesophageal reflux--upp er endoscopy in January of 2011 revealed a small to moderate-sized hiatal hernia, but no evidence of any significant esophagitis nor Davidson's esophagus--gastric biopsies were negative for H. pylori Tubular adenomas removed in 2005 and January 2011--also noted was diverticulosis and internal hemorrhoids Denies SD,DM,CVA,Lung disease,renal dise ase Hyperlipidemia DVT in left leg after his femur surgery in 2014--on Coumadin at that time Negative colonoscopy in 07/2016 Surgical History Surgery Date(Month/Year) Deviated septum Pilonidal cyst Appendectomy Broken left femur 08/2014 3 scopes on knees - Dr. Payne Tibia 1966
--- OUTSIDE RECORDS SUMMARY | 2025-04-01 22:06 | XMS_ITS | Clinical Summary ---
Author Organization [facility] Address [address] [facility] [address] [place] [address] Phone Care Team Providers Care Gage Designer Name Role Phone Jeremy Whalen MD Primary Care Provider [phone] Allergies No known active allergies Medications atorvastatin (LIPITOR) 40 MG tabletIndications: Mixed hyperlipidemia TAKE 1 TABLET BY MOUTH EVERY DAY 90 tablet 3 08/25/19 25 Active pantoprazole (PROTONIX) 40 MG tablet TAKE 1 TABLET (40 MG TOTAL) BY MOUTH 5 (FIVE) TIMES A WEEK. AT NIGHT. 60 tablet 3 11/19/19 25 Active metroNIDAZOLE (ROSADAN) 0.75 % gelIndications:Acn e rosacea Apply topically 2 (two) times a day. 45 g 02/24/20 25 Active Additional Information Patient not taking.Reported on 04/01/2025 Active Problems Problem Noted Date Diagnosed Date Left testicular pain 04/01/2025 Assessment & Plan (04/01/2025 1:56 PM EDT): Testicular pain, possibly epididymitis left-sided. Obtain ultrasounds of the scrotum with particular attention left-sided. Also today obtain CBC and CRP. If there are signs of epididymitis on ultrasound together with lab work will start antibiotic. For now treatment with Aleve 440 mg every 12 hours as needed, cold packs 20 minutes on 10 minutes off. Other insomnia 02/14/2023 Folliculitis barbae 05/15/2022 Assessment & Plan (05/15/2022 2:13 PM EDT): We will treat with doxycycline for at least 5 days but a total of 7 days if needed. Please be careful about the sunlight down in [place] regarding the doxycycline. It is photosensitive no get a bad sunburn. This is folliculitis so for right now hold off on shaving for about a week at least. Encounters Date Type Department Care Team Description 04/01/2025 1:55 PM EDT Hospital Encounter [facility] [address] [facility] [place] [address] Virgil Pelayo MD 04/01/2025 1:15 PM EDT Office Visit [facility] Internal Medicine [address] [place] [address] Virgil Pelayo MD Left testicular pain (Primary Dx) 04/01/2025 Telephone [facility] Internal Medicine [address] [facility] [place] [address] Jeremy Whalen MD Testicle Pain 02/23/2025 9:00 AM EDT Office Visit [facility] Internal Medicine [address] [place] [address] Jeremy Whalen MD Impaired fasting blood sugar (Primary Dx); Pure hypercholesterolemi a; Gastroesophageal reflux disease, unspecified whether esophagitis present; Acne rosacea 02/17/2025 Telephone [facility] Internal Medicine [address] [place] [address] Jeremy Whalen MD Results 02/09/2025 Documentation [facility] Internal Medicine [address] [place] [address] Jeremy Whalen MD from Last 3 Months Immunizations Immunization Administration Dates Next Due COVID-19 (Pre) Moderna Vaccine, Bivalent 6mo+ 05/01/2022 COVID-19 (Pre) Moderna Vaccine, mRNA, PF 10/11/2020,09/13/2020 INFLUENZA, SPLIT VIRUS, TRIV ALENT W/ PRESERVATIVE IM 04/22/2021,05/24/2015,09/12/2014 Influenza High-Dose Quadriva lent Preservative Free IM 05/22/2023,05/01/2022,04/07/2021 Influenza High-Dose Trivalen t Preservative Free IM 06/04/2024 Influenza Quadrivalent MDCK Preservative Free IM 06/22/2017 Influenza Quadrivalent Preservative Free IM 04/23 Influenza Quadrivalent w/ Preservative IM 2017,07/23/2017,05/15/2016 Influenza Recombinant Tanna valent Preservative Free IM 05/10/2020 Influenza Split (Incl. Purif ied Surface Antigen) 05/08/2013 Pneumococcal conjugate PCV20 05/19/2022 Pneumococcal polysaccharide PPSV23 04/25/2021 RSV Vaccine (bivalent) 06/12/2024 Tdap 05/31/2018 Zoster recombinant 05/10/2020,03/09/2020 Family History Medical History Relation Comments Heart disease Father Dementia Mother Relation Status Comments Brother Alive heart issues Father (Age 75) Mother (Age 93) Social History Tobacco Use Types Packs/Day Years Used Date Smoking Tobacco: Never Smokeless Tobacco: Never Tobacco Cessation:Counseling Given: Not Answered Alcohol Use Standard Drinks/Week Comments Yes 7 [...] your housing situation today? I have mauro sing 09/05/2024 How many times have you move [...] on file Sexual Orientation Not on file Last Filed Vital Signs Vital Sign Reading [...] Mass Index 28.43 04/01/2025 1:18 PM EDT Plan of Treatment Upcoming Encounters Date Type Department Care Team (Late st Contact Info) Description 09/14/2025 8:30 AM EST Office Visit [facility] [place] Internal Medicine [address] [place] [address] Jeremy Whalen MD [address] [place] [address] [email or web address] Health Maintenance Due Date Last Done Comments HEPATITIS A VACCINES (1 of 2 - Risk 2-dose series) 1974 COLOGUARD 2000 FIT TEST 2000 FOBT 2000 SIGMOIDOSCOPY 2000 VIRTUAL COLONOSCOPY 2000 INFLUENZA VACCINE (#1) 2025 , 05/22/2023, 05/01/2022, Additional history exists COVID-19 VACCINE ( season) 2025 06/12/2024, 05/01/2022, 10/31/2021, Additional history exists DEPRESSION SCREENING 09/05/2025 09/05/2024 COLONOSCOPY 09/07/2026 09/07/2021, 08/17/2016 COLORECTAL CANCER SCREENING 09/07/2026 SCREENING FOR DIABETES 11/05/2027 , 10/04/2021, 01/07/2020 Adult Td,Tdap Booster 05/31/2028 05/31/2018 LIPID PANEL 11/04/2029 11/04/2024, 10/21, 11/04/2024, Additional history exists ZOSTER VACCINES Completed 05/10/2020, 03/09/2020 HEPATITIS C SCREENING Completed 10/04/2021 PNEUMOCOCCAL VACCINES (50+ years) Completed 05/19/2022, 04/25/2021 RSV VACCINE Completed 06/12/2024 SMOKING STATUS SCREENING (Once After 26 Yrs) Completed 04/01/2025 HIB VACCINES Aged Out No longer eligi ble based on patient's age to complete this topic MENINGOCOCCAL VACCINES (ACWY) Aged Out No longer eligible based on patient's age to complete this topic MENINGOCOCCAL VACCINES (B) Aged Out N o longer eligible based on patient's age to complete this topic Medical Devices Not on file Procedures Procedure Name Priority Date/Time Associated Diagnosis Comments C-REACTIVE PROTEIN Routine 04/01/2025 1: 57 PM EDT Left testicular pain CBC Routine 04/01/2025 1:57 PM EDT Left testicular pain OUTSIDE HDL Routine 11/04/2024 OUTSIDE GLUCOSE FASTING Routine 10/04/2021 HEPATITIS C ANTIBODY, QUALITATIVE Routine 10/04/2021 HM COLONOSCOPY FOR RESULT ENTRY ONLY Routine 09/07/2021 from Last 3 Months or Most Recently Relevant to Health Maintenance Results * (ABNORMAL) CBC (04/01/2025 1:57 PM EDT) WBC 5.56 4.00 - 11.00 K/uL [facility] RBC 4.57 4.50 - 5.90 M/uL [facility] HGB 14.7 13.5 - 17.5 g/dL [facility] HCT 44.0 41.0 - 53.0 % [facility] PLT 235 150 - 450 K/uL [facility] MCV 96.3 80.0 - 100.0 fL [facility] MCH 32.2(H) 27.0 - 31.0 pg [facility] MCHC 33.4 32.0 - 36.0 g/dL [facility] RDW 12.3 11.5 - 14.5 % [facility] MPV 10.9 8.4 - 12.0 fL [facility] NRBC 0.00 0.00 /100 WBCs [facility] ABSOLUTE NRBC 0.00 0.00 K/uL [facility] Blood 04/01/2025 1:57 PM EDT 04/01/2025 2:01 PM EDT us Virgil Pelayo MD LAB BLOOD ORDERABLES Final Resul t [facility] [address] [place], [place] [id number] * C-Reactive Protein (04/01/2025 1:57 PM EDT) [facility] C REACTIVE PROTEIN <3.0 0.0 - 4.0 mg/L [facility] Blood 04/01/2025 1:57 PM EDT 04/01/2025 2:01 PM EDT Virgil Pelayo MD LAB BLOOD ORDERABLES Final Resul t Performing Organization Address City/[facility]/ZIP Co de Phone Number [facility] [address] [place] [address] * Outside HDL (11/04/2024) [facility] HDL - External 42 40 - 80 mg/dL EXTERNAL NON-INTERFACED REF LAB Result [facility] Historical Provider LAB BLOOD ORDERABLES Laura l Result Performing Organization Address City/[facility]/ZIP Co de Phone Number EXTERNAL NON-INTERFACED REF LAB * (ABNORMAL) Outside Glucose,Fasting (10/04/2021) [facility] Glucose, fasting - External 121(A) 65 - 99 mg/dL Result [facility] Historical Provider LAB BLOOD ORDERABLES Laura l Result * Hepatitis C antibody, qualitative (10/04/2021) Result [facility] Jeremy Whalen MD LAB BLOOD ORDERABLES Edited R esult - Final * COLONOSCOPY FOR RESULT ENTRY ONLY (09/07/2021) [facility] Colonoscopy 5 year recall Result [facility] Historical Provider HEALTH MAINTENANCE Final Result from Last 3 Months or Most Recently Relevant to Health Maintenance Insurance MEDICARE PART A & B MEDICARE SUPPLEMENT MEDICARE PART A & B MEDICARE SUPPLEMENT [facility] MEDICARE [place] [address] [place] [address] MEDICARE SUPPLEMENT MEDICARE PART A & B Member Subscriber Plan / Payer ( fective 2024-) Name:Jeremias Arthur Member ID:[id number] Relation to Subscriber:Self Name:Xavierdeanna Arthur Subscriber ID:[id number] Payer ID:[id number] Group ID:Not on file Type:Medicare [facility]: [facility] [address] [place] [address] [facility] MEDICARE SUPPLEMENT [facility] MEDICARE SUPPLEMENT MEDICARE PART A & B [facility] MEDICARE SUPPLEMENT MEDICARE PART A & B Member Subscriber Plan / Payer (Ef fective 2024-Present) Name:XavierArthur huerta Member ID:[id number] Relation to Subscriber:Self Name:Arthur Mcdowell Subscriber ID:[id number] Payer ID:[id number] Group ID:Not on file Type:Medicare Address: [employer] [address] MEDICARE SUPPLEMENT MEDICARE PART A & B MEDICARE SUPPLEMENT Care Teams Gage Designer Relationship Specialty Start Date End Date Jeremy Whalen MD [address] [place] [address] [email or web address] PCP - General Internal Medicine 12/27/18 Additional Source Comments The information contained in this document represents components of the legal health record. It is not the complete legal health record.[facility]
--- OUTSIDE RECORDS SUMMARY | 2025-04-01 22:06 | XMS_ITS | Encounter Summary ---
Author Organization [facility] Address [address] [facility] [address] [place] [address] Phone Care Team Providers Care Set Up Mechanic Name Role Phone Jeremy Whalen MD Primary Care Provider [phone] Reason for Visit * Reason Onset Date Comments Testicle Pain 04/01/2025 Encounter Details Date Type Department Care Team (Late st Contact Info) Description 04/01/2025 Telephone [employer] [facility] Internal Medicine [address] [place], [place] [phone] Jeremy Whalen MD [address] [place] [address] [email or web address] Testicle Pain Social History Tobacco Use Types Packs/Day Years [...] on file documented as of this encounter Progress Notes * Kathryn Ridley, JENNIFER - 04/01/2025 11:47 AM EDT Spoke to Arthur, States he's had left testicular pain for the last 2 days. Worst when sitting or laying down. No redness or swelling, no warmth to the touch. No lumps or bumps. No recent increased exertion/lifting. States he was in too much pain to go for his walk today. Scheduled today at [address] Pelayo for eval. He is appreciative. * Claudia Webber - 04/01/2025 11:44 AM EDT Patient called in, he states since yesterday he has been having significant left testicular pain. States he does not know what he could have done to bring this one states when he is sitting he has pain and it gets better once her is up and walk. Please advise. documented in this encounter Plan of Treatment Upcoming Encounters Date Type Department Care Team (Late st Contact Info) Description 09/14/2025 8:30 AM EST Office Visit [facility] Internal Medicine [address] [place] [address] Jeremy Whalen MD [address] [place] [address] [email or web address] documented as of this encounter Visit Diagnoses Not on filedocumented in this encounter Additional Health Concerns Assessment Noted Time PHQ-2 Depression Total Score: 0 09/05/19 25 12:38 PM EST documented as of this encounter Care Teams Set Up Mechanic Relationship Specialty Start Date End Date Jeremy Whalen MD [address] [place] [address] [email or web address] PCP - General Internal Medicine 12/27/18 documented as of this encounter Additional Source Comments The information contained in this document represents components of the legal health record. It is not the complete legal health record.[facility]
--- OUTSIDE RECORDS SUMMARY | 2025-04-01 22:06 | XMS_ITS | Encounter Summary ---
Author Organization [facility] Address [address] [facility] [address] [place] [address] Phone Care Team Providers Care Lathmaker Name Role Phone Jeremy Whalen MD Primary Care Provider Reason for Visit * Reason Onset Date Comments Abdominal Discomfort 12/01/2022 Constipation 12/01/2022 Abdominal Pain 12/01/2022 Encounter Details Date Type Department Care Team (Late st Contact Info) Description 12/01/2022 Nurse Triage [facility] Internal Medicine [address] [place] [address] Jeremy Whalen MD [address] [place] [address] [email or web address] Abdominal Discomfort; Constipation (/); Abdominal Pain Social History Tobacco Use Types Packs/Day Years Used Date Smoking Tobacco: Never Smokeless Tobacco: Never Alcohol Use Standard Drinks/Week Comments Yes 12 (1 standard drink = 0.6 oz pu re alcohol) Child or Family Care Answer Date Record ed Do you have problems with on e of the following making it difficult for you to work, study, or receive health care? No 05/19/2022 Education Answer Date Recorded Are you interested in help w ith more adult education (for example, completing high school, GED, job training, learning the Malay language, technical skills, or developing parenting skills)? No 05/19/2022 Food Answer Date Recorded Within the past 6 months we worried whether our food would run out before we got money to buy more. Never True 05/19/2022 Within the past 6 months the food we bought just didn't last and we didn't have enough money to get more. Never True Residential Stability Answer Date Recor ded What is your housing situation today? I have mauro gonzalez 05/19/2022 How many times have you move d in the past 12 months? Zero (I did not move) 05/19/2022 Paying for Meds Answer Date Recorded Do you have trouble paying for medicines? No 05/19/2022 Paying Utility Bills Answer Date Record ed Do you have trouble paying your heating or elect ricity bill? No 05/19/2022 Transportation Answer Date Recorded Has the lack of transportati on kept you from medical appointments or from getting medications? No 05/19/2022 Unemployment Answer Date Recorded Are you currently unemployed or working on a part-time or temporary basis, and looking for work? No 05/19/2022 Sex and Gender Information Value Date Recorded Sex Assigned at Not on file Legal Sex Male 10:02 AM EDT Gender Identity Not on file Sexual Orientation Not on file documented as of this encounter Progress Notes * Kady Estrada, JENNIFER - 12/01/2022 2:39 PM EDT Pt has had abdominal pain on and off for the past 3 weeks. He has constipation on and off. Pt also states he has gas that is obnoxious. States last time pt had a BM was a few hours ago. Stool is soft. No blood. Pt currently does not have abdominal pain. Pt last had abdominal pain in the last week. Pt takes stool softener. Pt denies nausea. Stomach is not distended. Scheduled pt for next availablein 1 week. Stated if abdominal pain comes back or symptoms worsen to call. Pt voiced understanding Nurse Triage Encounter Note Reason for Triage Arthur Mcdowell contacted office for Other,Constipation,Abdominal Pain Call Disposition Schedule Visit Within 2 Business Days Patient/caregiver understands and will follow disposition: Yes Patient/caregiver understands and will follow care advice: Yes, Plans To Follow Advice Disposition Comments: Protocols used: Abdominal Pain - Bdua-Nltfe-Ma Initial Symptom Screening and Assessment IA None Care Advice Given Care Advice Patient/Caregiver understands and will follow care advice?: Yes, plans to follow advice SEE IN OFFICE TODAY OR TOMORROW: * You need to be examined. Let me give you an appointment. * IF NO AVAILABLE OFFICE APPOINTMENTS: You need to be seen in an Urgent Care Center. Go to the one at [facility]. Go there today. A nearby Urgent Care Center is often a good source of care. REST: * Lie down. * Rest until you feel better. DRINK CLEAR FLUIDS: * Drink clear fluids only (e.g., water, flat soft drinks or half-strength Gatorade). * Sip small amounts at a time, until you feel better and the pain is gone. * Then slowly return to a regular diet. DIET: * Slowly advance diet from clear liquids to a bland diet. * Avoid alcohol or caffeinated beverages. * Avoid greasy or fatty foods. Patient will call back with additional questions or if symptoms change or worsen Kady Estrada RN Reason for Disposition and Assessment Reason for Disposition ??? MILD pain (e.g., does not interfere with normal activities) and pain comes and goes (cramps) lasts > 48 hours (Exception: This same abdominal pain is a chronic symptom recurrent or ongoing ANDpresent > 4 weeks.) Protocols used: ABDOMINAL PAIN - [id number] * Jami Moore - 12/01/2022 2:08 PM EDT Pt called stating he is experiencing abdominal discomfort with a lot of gas and constipation on andoff. Pt stated he has been experiencing this for the past 3 weeks and has been trying to decrease his Murelax intake. Pt requested an appointment, no appointments available soon. documented in this encounter Plan of Treatment Upcoming Encounters Date Type Department Care Team (Late st Contact Info) Description 09/14/2025 8:30 AM EST Office Visit [facility] Internal Medicine [address] [place] [address] Jeremy Whalen MD [address] [place] [address] documented as of this encounter Visit Diagnoses Not on filedocumented in this encounter Additional Health Concerns Assessment Noted Time PHQ-2 Depression Total Score: 0 10/24/19 23 8:32 AM EDT documented as of this encounter Care Teams Lathmaker Relationship Specialty Start Date End Date Jeremy Whalen MD [address] [place] [address] [email or web address] PCP - General Internal Medicine 12/27/18 documented as of this encounter Additional Source Comments The information contained in this document represents components of the legal health record. It is not the complete legal health record.[facility]
[2025-04-01 23:09] LABS: MANUAL DIFF FLAG NO
[2025-04-01 23:10] LABS: Hematocrit 42.9 % (42.0-52.0); Hemoglobin 15.1 g/dl (14.0-18.0); Imm Gran Abs Auto 0.02 X10*3/uL (0.00-0.03); Imm Gran Pct Auto 0.3 % (0.0-0.4); Lymphocytes Absolute Auto 1.7 X10*3/uL (1.2-4.9); Mean Corpuscular HGB Conc 35.2 g/dl (31.0-36.0); Mean Corpuscular Hemoglobin 32.5 pg (27.0-33.0); Mean Corpuscular Volume 92.5 fL (80.0-98.0); NRBC Abs Auto 0.000 X10*3/uL (0.0-0.012); NRBC Pct Auto 0.0 /100WBC (0.0-0.2); Platelet Count 247 X10*3/uL (160-400); Red Blood Count 4.64 X10*6/uL (4.60-5.80); White Blood Count 6.0 X10*3/uL (4.8-10.8)
[2025-04-01 23:18] LABS: Appearance Urine Clear; Glucose Urine UA Negative (Negative); PH 5.5 (5.0-9.0); Specific Gravity - Urine 1.025 (1.005-1.025)
[2025-04-01 23:35] LABS: Alanine Aminotransferase 40 U/L (0-40); Albumin Level 4.3 g/dL (3.5-5.0); Alkaline Phosphatase 90 U/L (39-117); Anion Gap 13 (12-20); Aspartate Amino Transferase 29 U/L (5-37); Blood Urea Nitrogen 16 mg/dL (9-16); Calcium 8.8 mg/dL (8.4-10.2); Carbon Dioxide 26 mmol/L (22-29); Chloride 108 mmol/L (96-108); Creatinine Clr Calc Pharmacy 92.7; Estimated Glomerular Filt Rate > 60; Magnesium 2.0 mg/dL (1.6-2.6); Potassium 4.5 mmol/L (3.3-5.1); Sodium 142 mmol/L (135-145); Total Protein 7.2 g/dL (6.5-8.0)
[2025-04-02 00:04] VITALS: BP 150/68; PULSE 74; RESP 20; TEMP 36.4; O2SAT 97
[2025-04-02] MEDS: iohexoL 350 MG/ML 100 ML INFUS..BTL 85 ML IV (00:54)
[2025-04-02 02:15] VITALS: BP 156/87; PULSE 77; RESP 16; O2SAT 98
[2025-04-02] MEDS: diazePAM 10 MG/2 ML CARTRIDGE 5 MG IVPUSH (02:16)
[2025-04-02 04:00] VITALS: BP 161/85; PULSE 68; RESP 16; TEMP 36.7; O2SAT 97
--- NOTE | 2025-04-02 05:04 | ED.GENADULT ---
HPI - General Adult General Chief complaint: General Medical Stated complaint: lt groin pain Time Seen by Provider: 04/01/25 22:16 Source: patient Limitations: no limitations History of Present Illness ED Provider: Cheryl Nunez PA-C HPI narrative: 69-year-old male with a history of hyperlipidemia and GERD presents with left groin pain for 2-3 days. Pain originates in left groin/inguinal region with radiation to the testicle at times. He does not have swelling, redness of the testicle. Denies dysuria, hematuria, penile discharge or fever. Denies mid back pain, flank pain or abdominal pain. No nausea vomiting. Associated paresthesia of anterior left lower extremity. Denies urinary retention, bowel incontinence or weakness of lower extremity. Patient is physically active, he can not recall a new activity, or new heavy lifting, no trauma that could have precipitated his symptoms. Related Data Home Medications ?Medication ?Instructions ?Recorded ?Confirmed omeprazole 20 mg capsule,delayed 20 mg PO DAILY 08/31/21 08/31/21 release simvastatin 1 tab PO DAILY 08/31/21 08/31/21 Previous Rx's ?Medication ?Instructions ?Recorded hydromorphone 2 mg tablet 2 mg PO Q6H PRN pain, severe #12 04/02/25 (Dilaudid) tabs ketorolac 10 mg tablet 10 mg PO Q6H PRN pain #20 tabs 04/02/25 methocarbamol 750 mg tablet 1,500 mg (2 x 750 mg) PO Q8H PRN 04/02/25 pain, moderate #24 tabs methylprednisolone 4 mg tablets in 4 mg PO QAM #21 ea 04/02/25 a dose pack (Medrol (Cesar)) Allergies Allergy/AdvReac Type Severity Reaction Status Date / Time No Known Allergies (No Known Allergy Verified 04/01/25 21:49 Allergies*) Review of Systems Review of Systems: Yes all other systems are reviewed and are negative Constitutional: Constitutional: Denies fatigue and Denies fever(s) Cardiovascular: Cardiovascular: Denies chest pain and Denies dyspnea Respiratory: Respiratory: Denies dyspnea Gastrointestinal: Gastrointestinal: Denies abdominal pain, Denies nausea and Denies vomiting Genitourinary: Genitourinary: Denies hematuria, Denies dysuria, Denies flank pain, Denies penile discharge, Denies scrotal swelling and Reports testicular pain Musculoskeletal: Musculoskeletal: Reports back pain, Denies muscle weakness, Denies numbness and Reports radiating pain into limb Neurologic: Denies numbness Endocrine: Endocrine: Denies fatigue [facility] Past Medical History Attestation statement: The following information was validated with the patient. Medical History (Updated 04/03/25 @ 00:00 by Melanie Loyola) DVT (deep venous thrombosis) Elevated cholesterol GERD (gastroesophageal reflux disease) Surgical History (Updated 08/31/21 @ 12:46 by Cheryl Rasmussen RN) History of ankle surgery Hx of arthroscopic knee surgery History of surgical removal of pilonidal cyst Hx of appendectomy Hx of nasal septoplasty History of open reduction and internal fixation (ORIF) procedure History of esophagogastroduodenoscopy (EGD) H/O colonoscopy Social History Social History Patient Tobacco Use Status: Tobacco use Unknown Physical Exam ED Vital Signs: Vital Signs - 24 hr 04/01/25 21:47 04/01/25 22:05 04/02/25 00:04 Temperature 97.3 F 97.5 F 97.6 F Pulse Rate 64 68 74 Respiratory Rate 18 16 20 Blood Pressure 145/80 H 150/82 H 150/68 H Pulse Oximetry 97 96 97 Oxygen Delivery Method Room Air Room Air Room Air 04/02/25 02:15 04/02/25 04:00 Temperature 98.0 F Pulse Rate 77 68 Respiratory Rate 16 16 Blood Pressure 156/87 H 161/85 H Pulse Oximetry 98 97 Oxygen Delivery Method Room Air Room Air BMI result Body Mass Index 28.8 Const Other: Alert, appears extremely uncomfortable Orientation/consciousness: patient oriented x3 Resp Effort & Inspection: normal respiratory effort Cardio Other: Normal peripheral perfusion GI Other: No pain across the lower abdomen no distention no guarding General: Yes no CVA tenderness Back/Spine/Pelvis Back: no CVA tenderness Skin Other: Warm dry no rash Neuro General: patient oriented x3, gait normal, no focal motor deficits and CN's II-XI intact bilaterally Extrem Other: Strength 5/5 bilateral lower extremities normal gait Psych Other: Cooperative Course Reevaluation(s) Reevaluation #1: Patient's pain is still poorly controlled, increasing the amount of analgesia based medication Reevaluation #2: Patient's pain stool is controlled CT back is unremarkable he has some arthritic changes, his pain is out of proportion, he is now stating he is having discrete testicle pain, now I will order an ultrasound adding additional pain medication Medications Administered Discontinued Medications Generic Name Dose Route Start Last Admin Trade Name Zahra PRN Reason Stop Dose Admin Diazepam 5 mg 04/02/25 02:11 04/02/25 02:16 Diazepam 10 Mg/2 Ml Cartridge IVPUSH 04/02/25 02:12 5 mg STAT STA Administration Hydromorphone HCl 1 mg 04/02/25 03:36 04/02/25 03:54 Hydromorphone Hcl 1 Mg/Ml Syringe IVPUSH 04/02/25 03:37 1 mg ONCE ONE Administration Protocol Sodium Chloride 500 mls @ 500 mls/hr 04/01/25 22:56 04/02/25 00:11 Ns IV 04/01/25 23:55 Infused .Q1H ONE Infusion Iohexol 85 ml 04/02/25 00:54 04/02/25 00:54 Iohexol 350 Mg/Ml 100 Ml Infus..Btl IV 04/02/25 00:55 85 ml ONCE ONE Administration Ketorolac Tromethamine 15 mg 04/01/25 22:56 04/01/25 23:09 Ketorolac Tromethamine 15 Mg/Ml Vial IVPUSH 04/01/25 22:57 15 mg ONCE ONE Administration Morphine Sulfate 4 mg 04/01/25 22:56 04/01/25 23:09 Morphine Sulfate 4 Mg/Ml Cartridge IVPUSH 04/01/25 22:57 4 mg ONCE ONE Administration Protocol Morphine Sulfate 6 mg 04/01/25 23:59 04/02/25 00:05 Morphine Sulfate 10 Mg/Ml Cartridge IVPUSH 04/02/25 00:00 6 mg ONCE ONE Administration Protocol Ondansetron HCl 4 mg 04/01/25 22:56 04/01/25 23:09 Ondansetron Hcl 4 Mg/2 Ml Vial IVPUSH 04/01/25 22:57 4 mg ONCE ONE Administration Medical Decision Making Medical Decision Making MDM Narrative: 69-year-old male with a history of hyperlipidemia and GERD presents with left groin pain for 2-3 days. Pain originates in left groin/inguinal region with radiation to the testicle at times. He does not have swelling, redness of the testicle. Denies dysuria, hematuria, penile discharge or fever. Denies mid back pain, flank pain or abdominal pain. No nausea vomiting. Associated paresthesia of anterior left lower extremity. Denies urinary retention, bowel incontinence or weakness of lower extremity. Patient is physically active, he can not recall a new activity, or new heavy lifting, no trauma that could have precipitated his symptoms. Problem: Nothing relevant History: Per patient I have considered the following differential diagnoses: Lumbar radiculopathy/sciatica, cauda equina, torsion, renal colic Plan: The patient is here with lumbar radicular symptoms, without red flag signs symptoms concerning for cord compression, he has no mechanism of injury. Given distribution of discomfort with radiation to the testicle, I am also considering renal colic, however, he has not had mid back pain no flank pain, no hematuria dysuria or history of kidney stones. I will obtain a dry scan, this will capture of the lumbar region as well. Giving analgesia. Screening labs completed, I just need a urine sample. He is having referred pain to the testicle, without any swelling redness or erythema to suggest infection versus torsion, I do not feel he requires a testicular ultrasound at this time. I have independently reviewed the following tests: Labs: No leukocytosis, not anemic, no electrolyte abnormality, urine not infected CT abd/pelvis: Findings: There is mild atelectasis. There is coronary artery calcification. The liver, gallbladder, pancreas, spleen, adrenal glands, and kidneys are unremarkable. There is colonic diverticulosis. There is no acute diverticulitis. The gastrointestinal tract is otherwise unremarkable. There are no enlarged lymph nodes. The aorta is normal in diameter. There are degenerative changes in the lumbar spine. There is an old healed internally fixated proximal left femur fracture. There is no acute fracture or suspicious lytic or sclerotic lesion. IMPRESSION: 1. No acute abnormality in the abdomen or pelvis. 2. Chronic findings as above. scrotal US: Findings: Right testicle is normal in size and echogenicity measuring 4.6 x 2.8 x 4 cm. There is normal color flow and arterial/venous spectral tracing in the right testicle. The right epididymis appears normal. There is a small right hydrocele. There is no right varicocele. Left testicle is normal in size and echogenicity measuring 4.3 x 2.5 x 3.1 cm. There is an incidental small left appendix testis measuring 3 mm. There is normal color flow and arterial/venous spectral tracing in the left testicle. There is an incidental small exophytic left epididymal cyst. Left epididymis appears otherwise normal. There is a small left hydrocele. There is no left varicocele. IMPRESSION: 1. No testicular torsion. 2. Small bilateral hydroceles. Differential Diagnosis Differential Diagnoses: The differential diagnosis associated with the presentation includes See medical decision-making Admission/Observation Consideration of admission/observation: Escalation of care including admission/observation considered Not applicable Lab Data MDM Lab Attestation statement: I reviewed the patient's lab results. 04/01/25 23:02 04/01/25 23:02 Labs: Lab Results 04/01/25 Range/Units 23:02 WBC 6.0 (4.8-10.8) X10*3/uL RBC 4.64 (4.60-5.80) X10*6/uL Hgb 15.1 (14.0-18.0) g/dl Hct 42.9 (42.0-52.0) % MCV 92.5 (80.0-98.0) fL MCH 32.5 (27.0-33.0) pg MCHC 35.2 (31.0-36.0) g/dl RDW 12.3 (11.0-16.0) % Plt Count 247 (160-400) X10*3/uL MPV 10.2 (9.4-12.4) fL Immature Gran % (Auto) 0.3 (0.0-0.4) % Neut % (Auto) 61.8 (45-73) % Lymph % (Auto) 28.4 (20-40) % [place] % (Auto) 7.0 (2-11) % Eos % (Auto) 1.7 (0-4) % Baso % (Auto) 0.8 (0-2) % Lymph # (Auto) 1.7 (1.2-4.9) X10*3/uL [place] # (Auto) 0.4 (0.1-1.2) X10*3/uL Eos # (Auto) 0.1 (0.0-0.4) X10*3/uL Baso # (Auto) 0.1 (0.0-0.2) X10*3/uL Abs Immat Gran (auto) 0.02 (0.00-0.03) X10*3/uL Absolute Neuts (auto) 3.7 (2.0-8.3) x10*3/uL Absolute Nucleated RBC 0.000 (0.0-0.012) X10*3/uL Nucleated RBC % (auto) 0.0 (0.0-0.2) /100WBC Sodium 142 (135-145) mmol/L Potassium 4.5 (3.3-5.1) mmol/L Chloride 108 (96-108) mmol/L Carbon Dioxide 26 (22-29) mmol/L Anion Gap 13 (12-20) BUN 16 (9-16) mg/dL Creatinine 0.93 (0.5-1.4) mg/dL Estim Creat Clear Calc 92.7 Estimated GFR > 60 Random Glucose 154 H (60-115) mg/dL Calcium 8.8 (8.4-10.2) mg/dL Magnesium 2.0 (1.6-2.6) mg/dL Total Bilirubin 0.7 (0.0-1.0) mg/dL AST 29 (5-37) U/L ALT 40 (0-40) U/L Alkaline Phosphatase 90 (39-117) U/L Total Protein 7.2 (6.5-8.0) g/dL Albumin 4.3 (3.5-5.0) g/dL Urine Color Yellow Urine Appearance Clear Urine pH 5.5 (5.0-9.0) Ur Specific [place] 1.025 (1.005-1.025) Urine Protein Negative (Neg-Trace) mg/dL Urine Glucose (UA) Negative (Negative) mg/dL Urine Ketones Trace (Negative) mg/dL Urine Blood Negative (Negative) Urine Nitrite Negative (Negative) Ur Leukocyte Esterase Negative (Negative) Radiology Impression Discussion of test interpretation with radiology: I have reviewed the radiologist's reading. Discharge Plan Discharge Clinical Impression: Left groin pain Patient Disposition: Home, Self-Care Instructions: Groin Pain (ED) Additional Instructions: All of your screening labs including a urinalysis were completely normal. There were no acute findings on the CT scan of your abdomen and pelvis. You were found to have arthritic changes of the lumbar spine and in the region of your healed femur fracture. There were also no acute findings on the ultrasound of the scrotal contents. You were incidentally found to have bilateral hydroceles; these are benign fluid collections that do not cause pain, you likely have had them for quite some time. You are being treated for groin strain versus potential sciatica. Use the ketorolac as directed, this is an anti-inflammatory, take it with food. Take the Medrol Dosepak as directed this is a steroid taper, we are using this has a 2nd anti-inflammatory Use the Dilaudid only as needed, this is an opiate based pain medication, it may cause constipation, you should use [id number] Colace twice a day to help prevent constipation. Use the methocarbamol as needed for further pain, this is a muscle relaxant. Both the muscle relaxant and the Dilaudid can cause drowsiness, do not drive or operate machinery while taking this medication. You need to follow up with primary care. If your symptoms persist, you may require physical therapy. You may also require advanced imaging, an MRI, that would be scheduled as an outpatient. Prescriptions: New ketorolac 10 mg tablet 10 mg PO Q6H PRN (Reason: pain) Qty: 20 0RF Rx Instructions: maximum total duration of 5 days from all oral, intranasal, or parenteral formulations. The patient received an IV dose of Toradol here in the emergency room. methylprednisolone [Medrol (Cesar)] 4 mg tablets,dose pack 4 mg PO QAM Qty: 21 0RF Rx Instructions: Take per package instructions methocarbamol 750 mg tablet 1,500 mg PO Q8H PRN (Reason: pain, moderate) Qty: 24 0RF hydromorphone [Dilaudid] 2 mg tablet 2 mg PO Q6H PRN (Reason: pain, severe) Qty: 12 0RF Rx Instructions: Partial Fill upon patient request. No Action omeprazole 20 mg Capsule,Delayed Release(Dr/Ec) 20 mg PO DAILY simvastatin 1 tab PO DAILY Interventions: ED Discharge Assessment Last Done: 04/02/25 05:24 Discharge Date/Time: 04/02/25 05:24 Print Language: Hebrew
[2025-04-02 05:24] VITALS: BP 161/85; PULSE 68; RESP 16; TEMP 36.7; O2SAT 97
== END 2025-04-02 05:24 | disposition home or self-care (01) ==
PROVIDERS: Physician Assistant Medical; Emergency Provider Emergency Medicine; PCP Internal Medicine
DX: N50.82 Scrotal pain (principal); R10.30 Lower abdominal pain, unspecified; E78.5 Hyperlipidemia, unspecified
CPT/HCPCS: 36415; 74177; 76870; 80053; 81003; 83735; 85025; 93975; 96361; 96374; 96375; 99284; 99285; J1171; J1885; J2270; J2405; J3360; Q9967

== ENCOUNTER → 2025-04-01 22:56 | Outpatient (BNV) | payer OTHER, MEDICARE, SELFPAY | PROVIDERS: PCP Internal Medicine; Visit Provider Radiology Diagnostic Radiology | DX: R10.32 Left lower quadrant pain (principal) | CPT/HCPCS: 74177 ==

== ENCOUNTER → 2025-04-02 03:36 | Outpatient (BNV) | payer OTHER, MEDICARE, SELFPAY | PROVIDERS: Emergency Provider Emergency Medicine; PCP Internal Medicine; Visit Provider Radiology Diagnostic Radiology | DX: N50.812 Left testicular pain (principal) | CPT/HCPCS: 76870 ==

== ENCOUNTER 2025-04-27 18:59 | Outpatient (REF) | payer MEDICARE, OTHER, SELFPAY ==
--- NOTE | ~2025-04-27 | MR_ITS ---
CLINICAL HISTORY: ACUTE LT SIDED LBP W O SCIATICA MR lumbar spine without gadolinium Comparison: None Findings: No fracture or acute malalignment. No suspicious marrow lesion. Multilevel disc space narrowing and disc desiccation most pronounced throughout the lower lumbar spine. The conus terminates normally at L1. The cauda equina are unremarkable. Retroperitoneal soft tissues are within normal limits. Paravertebral soft tissues are within normal limits. Endplate Modic type changes at L4-L5. Individual levels: L1-L2: Moderate bilateral neural foraminal narrowing, fphn-yowokeh-gpex-right. No central canal stenosis. L2-L3: Small right eccentric disc protrusion with facet hypertrophy. No central canal stenosis. Moderate bilateral neural foraminal narrowing. L3-L4: Small posterior disc protrusion with facet hypertrophy. There is moderately severe right neural foraminal narrowing and mild left neural foraminal narrowing. No central canal stenosis. L4-L5: Small posterior disc osteophyte complex. Severe right neural foraminal narrowing. Moderate left neural foraminal narrowing. No central canal stenosis. L5-S1: No central canal stenosis or neural foraminal narrowing. Impression: Multilevel neural foraminal narrowing as detailed above. This document has been electronically signed by: Mejia Nj MD on 04/29/2025 10:25:32
--- OUTSIDE RECORDS SUMMARY | 2025-04-27 19:03 | XMS_ITS | Encounter Summary ---
Author Organization [facility] Address [address] [place] [id number] Phone Care Team Providers Care Student Outreach Coordinator Name Role Phone Jeremy Whalen MD Primary Care Provider [phone] Encounter Details Date Type Department Care Team (Late st Contact Info) Description 04/27/2025 Telephone [facility] Internal Medicine [address] [place] [address] Virgil Pelayo MD [address] [place] [address] [email or web address] Social History Tobacco Use Types Packs/Day Years [...] as of this encounter Progress Notes * Jeremy Whalen MD - 04/27/2025 6:40 PM EDT Noted. * Virgil Pelayo MD - 04/27/2025 6:11 PM EDT In discussion with Dr. Whalen and Andre, for pain relief we will try gabapentin 300 mg p.o. 3 times daily and that will be called into the pharmacy tonight. We talked about getting further imaging anddiscussion whether the pudendal nerve might have been entrapped but his symptoms do not seem to convey this. Therefore continue with the lumbar MRI as ordered to look for impingement of the L1 or L2 nerve left-sided and if that is negative referral to urology. Incidentally he does have a referral in place with Dr. Cordoba in [place]. documented in this encounter Plan of Treatment Upcoming Encounters Date Type Department Care Team (Late st Contact Info) Description 09/14/2025 8:30 AM EST Office Visit [facility] Internal Medicine [address] [place] [address] Jeremy Whalen MD [address] [place] [address] [email or web address] documented as of this encounter Visit Diagnoses Diagnosis Testicular pain, left- Primary Unspecified disorder of male genital organs documented in this encounter Additional Health Concerns Assessment Noted Time PHQ-2 Depression Total Score: 0 09/05/19 25 12:38 PM EST documented as of this encounter Care Teams Student Outreach Coordinator Relationship Specialty Start Date End Date Jeremy Whalen MD [address] [place] [address] [email or web address] PCP - General Internal Medicine 12/27/18 documented as of this encounter Additional Source Comments The information contained in this document represents components of the legal health record. It is not the complete legal health record.[facility]
--- OUTSIDE RECORDS SUMMARY | 2025-04-27 19:03 | XMS_ITS | Encounter Summary ---
Author Organization [facility] Address [address] [place] [phone] Phone Care Team Providers Care Science Teacher Name Role Phone Jeremy Whalen MD Primary Care Provider [phone] Reason for Visit * Reason Onset Date Comments Medication Question 04/27/2025 Encounter Details Date Type Department Care Team (Late st Contact Info) Description 04/27/2025 Telephone [facility] Internal Medicine [address] [place], [place] [phone] Jeremy Whalen MD [address] [place] [address] [email or web address] Medication Question Social History Tobacco Use Types Packs/Day Years [...] Whalen MD - 04/27/2025 6:40 PM EDT See other TE * Kathryn Ridley RN - 04/27/2025 1:49 PM EDT Spoke to Arthur. States he is still having numbness in the left groin to knee. He also has pain there, feels numb and sore. At worst, pain is 8/10 at worst. The worst pain is at night, when he is trying to relax, and it keeps him up at night. States it doesn't bother him too much when he is walking around on it. States it's been on going for about 1 month. He is having his MRI tonight at [facility]. States he's been taking naprosyn, which is not helping. He is wondering if there is something that can be prescribed to help him with the pain at night. Will review with provider. * Bushra Deleon - 04/27/2025 1:43 PM EDT Patient left he has MRI on his back tonight states he is still having back pain and is requesting something for pain so he can get good night sleep until results of MRI are in - no other information left on VM -please advise [phone] documented in this encounter Plan of Treatment Upcoming Encounters Date Type Department Care Team (Late st Contact Info) Description 09/14/2025 8:30 AM EST Office Visit [facility] Internal Medicine [address] [place] [address] Jeremy Whalen MD [address] [place] [address] [email or web address] documented as of this encounter Visit Diagnoses Not on filedocumented in this encounter Additional Health Concerns Assessment Noted Time PHQ-2 Depression Total Score: 0 09/05/19 25 12:38 PM EST documented as of this encounter Care Teams Science Teacher Relationship Specialty Start Date End Date Jeremy Whalen MD [address] [place] [address] [email or web address] PCP - General Internal Medicine 12/27/18 documented as of this encounter Additional Source Comments The information contained in this document represents components of the legal health record. It is not the complete legal health record.[facility]
--- OUTSIDE RECORDS SUMMARY | 2025-04-27 19:03 | XMS_ITS | Clinical Summary ---
Author Organization [facility] Address [address] [address] Phone Care Team Providers Care Screw Machine Set Up Operator Name Role Phone Jeremy Whalen MD Primary Care Provider [phone] Allergies No known active allergies Medications atorvastatin (LIPITOR) 40 MG tabletIndications :Mixed hyperlipidemia TAKE 1 TABLET BY MOUTH EVERY DAY 90 tablet 3 025 Active pantoprazole (PROTONIX) 40 MG tablet TAKE 1 TABLET (40 MG TOTAL) BY MOUTH 5 (FIVE) TIMES A WEEK. AT NIGHT. 60 tablet 3 025 Active metroNIDAZOLE (ROSADAN) 0.75 % gelIndications:Ac ne rosacea Apply topically 2 (two) times a day. 45 g 025 Active Additional Information Patient not taking.Reported on 04/03/2025 HYDROmorphone (DILAUDID) 2 MG tablet 025 Active methocarbamoL (ROBAXIN) 750 MG tablet 025 Active methylPREDNISolon e (MEDROL DOSEPACK) 4 mg tablet 025 Active naproxen (NAPROSYN) 500 MG tabletIndications :Testicular pain, left Take 1 tablet (500 mg total) by mouth 2 (two) times a day with meals. 30 tablet 025 Active LORazepam (ATIVAN) 1 MG tabletIndications :Anxiety 1 tablet po prn anxiety re mri or flying 20 tablet 025 Active gabapentin (NEURONTIN) 300 MG capsuleIndication s:Testicular pain, left Take 1 capsule (300 mg total) by mouth 3 (three) times a day. 90 capsule 025 Active ketorolac (TORADOL) 10 mg tablet 025 2024 Discontinued Active Problems Problem Noted Date Diagnosed Date Acute left-sided low back pain without sciatica 04/03/2025 Testicular pain, left 04/01/2025 Assessment & Plan (04/03/2025 4:44 PM EDT): Left-sided testicular pain with some paresthesias of the left leg so the diagnosis differential diagnosis favored is L1 impingement syndrome. In order to better see this we will get an MRI of the upper lumbar spine. He may need help with anxiolytics because he is claustrophobic. The other differential is testicular pain however there is no Corlett either with labs exam or imaging. Referral to [facility] urology for further evaluation, we will put this urgently. Empiric pain to be treated with Medrol as he has been taking, Robaxin as a muscle relaxer and if absolutely necessary Dilaudid but he should stop the cuter lack and instead will call in naproxen. I will have the holder pile driving try to facilitate the MRI and consult urology. Assessment & Plan (04/01/2025 1:56 PM EDT): [...] be careful about the sunlight down in [place] regarding the doxycycline. It is photosensitive no get a bad sunburn. This is folliculitis so for right now hold off on shaving for about a week at least. Encounters Date Type Department Care Team Description 04/27/2025 Telephone [facility] Internal Medicine [address] [facility] [place] [address] Virgil Pelayo MD 04/27/2025 Telephone [facility] Internal [facility] 40 [facility] [place] [address] Jeremy Whalen MD Medication Question 04/09/2025 Telephone [facility] Internal [facility] 40 [place] [address] Jeremy Whalen MD Medication Refill 04/07/2025 Orders Only [facility] Internal [facility] 40 [place] [address] ProviderJorgito MD 04/03/2025 4:00 PM EDT Office Visit [facility] [address] [place] [address] Virgil Pelayo MD Testicular pain, left (Primary Dx); Acute left-sided low back pain without sciatica 04/03/2025 Telephone [facility] Internal [facility] 40 [place] [address] Jeremy Whalen MD Urgent MRI ordered 04/02/2025 Orders Only [facility] Internal [facility] 40 [place] [address] ProviderJorgito MD 04/01/2025 1:55 PM EDT - 04/01/2025 11:59 PM EDT Hospital Encounter [facility] [address] [facility] [place] [address] Virgil Pelayo MD Discharge Disposition: Home or Self Care 04/01/2025 1:15 PM EDT Office Visit [facility] Internal [facility] 40 [place] [address] Virgil Pelayo MD Left testicular pain (Primary Dx) 04/01/2025 Telephone [facility] Internal [facility] 40 [place] [address] Jeremy Whalen MD Testicle Pain 02/23/2025 9:00 AM EDT Office Visit [facility] Internal Medicine 40 [facility] [place] [address] Jeremy Whalen MD Impaired fasting blood sugar (Primary Dx); Pure hypercholesterolemi a; Gastroesophageal reflux disease, unspecified whether esophagitis present; Acne rosacea 02/17/2025 Telephone [facility] Internal Medicine 40 [facility] [place] [address] Jermey Whalen MD Results 02/09/2025 Documentation [facility] Internal Medicine 40 [facility] [place] [address] Jeremy Whalen MD from Last 3 Months [...] Sign Reading Time Taken Comments Blood Pressure 114/68 04/03/2025 4:06 PM EDT Pulse 81 04/03/2025 4:06 PM EDT Temperature 36.3 C (97.3 F) 04/03/2025 4:06 PM EDT Respiratory Rate 16 04/03/2025 4:06 PM EDT Oxygen Saturation 97% 04/03/2025 4:06 PM EDT Inhaled Oxygen Concentration - - Weight 99.2 kg (218 lb 9.6 oz) 04/03/2025 4:06 P M EDT Height 185.9 cm (6' 1.19 ) 04/03/2025 4:06 PM ED T Body Mass Index 28.69 04/03/2025 4:06 PM EDT Plan of Treatment Upcoming Encounters Date Type Department Care Team (Late st Contact Info) Description 09/14/2025 8:30 AM EST Office Visit [facility] Internal Medicine [address] [place] [address] Jeremy Whalen MD 40 [place] [address] [email or web address] Health Maintenance Due Date Last Done Comments [...] Booster 05/31/2028 05/31/2018 LIPID PANEL 11/04/2029 11/04/2024, 0411/2024, 11/04/2024, Additional history exists ZOSTER VACCINES Completed 05/10/2020, 03/09/2020 HEPATITIS C SCREENING Completed 10/04/2021 PNEUMOCOCCAL VACCINES (50+ years) Completed 05/19/2022, 04/25/2021 RSV VACCINE Completed 06/12/2024 SMOKING STATUS SCREENING (Once After 26 Yrs) Completed 04/03/2025 HIB VACCINES Aged Out No longer eligi ble based on patient's age to complete this topic MENINGOCOCCAL VACCINES (ACWY) Aged Out No longer eligible based on patient's age to complete this topic MENINGOCOCCAL VACCINES (B) Aged Out N o longer eligible based on patient's age to complete this topic Medical Devices Not on file Procedures Procedure Name Priority Date/Time Associated Diagnosis Comments MRI LUMBAR SPINE Urgent/patient waiting 04/06/2025 3:13 PM EDT Back pain MRI LUMBAR SPINE Routine 04/03/2025 4:35 PM EDT Acute left-sided low back pain without sciatica OUTSIDE US IMAGING REPORT ONLY Routine 04/02/2025 10:54 AM EDT OUTSIDE US IMAGING REPORT ONLY Routine 04/02/2025 7:53 AM EDT C-REACTIVE PROTEIN Routine 04/01/2025 1: 57 PM EDT Left testicular pain CBC Routine 04/01/2025 1:57 PM EDT Left testicular pain OUTSIDE CT ABD/PELVIS REPORT ONLY Routine 04/01/2025 7:[address] ABD/PELVIS REPORT ONLY Routine 04/01/2025 7:50 AM EDT OUTSIDE HDL Routine 11/04/2024 OUTSIDE GLUCOSE FASTING Routine 10/04/2021 HEPATITIS C ANTIBODY, QUALITATIVE Routine 10/04/2021 HM COLONOSCOPY FOR RESULT ENTRY ONLY Routine 09/07/2021 from Last 3 Months or Most Recently Relevant to Health Maintenance Results * Outside US Imaging??Report Only (04/02/2025 10:54 AM EDT) Historical Provider MD VALLADARES US OP Final Res ult * Outside US Imaging??Report Only (04/02/2025 7:53 AM EDT) Historical Provider MD VALLADARES US OP Final Res ult * (ABNORMAL) CBC (04/01/2025 1:57 PM EDT) [...] MD LAB BLOOD ORDERABLES Final Resul t [facility] [address] [place] [address] * C-Reactive Protein (04/01/2025 1:57 PM EDT) Pathologist [facility] C REACTIVE PROTEIN <3.0 0.0 - 4.0 mg/L [facility] Blood 04/01/2025 1:57 PM EDT 04/01/2025 2:01 PM EDT Result [facility] Virgil Pelayo MD LAB BLOOD ORDERABLES Final Resul t Performing Organization Address City/[facility] Co de Phone Number [facility] [address] [place] [address] * Outside CT Abd/pelvis Report Only (04/01/2025 7:51 AM EDT) Result [facility] Historical Provider MD VALLADARES CT ABD/PELVIS Final R esult * Outside CT Abd/pelvis Report Only (04/01/2025 7:50 AM EDT) Result [facility] Historical Provider MD VALLADARES CT ABD/PELVIS Final R esult * Outside HDL (11/04/2024) Pathologist [facility] HDL - External 42 40 - 80 mg/dL EXTERNAL NON-INTERFACED REF LAB Result [facility] Historical Provider LAB BLOOD ORDERABLES Laura l Result Performing Organization Address [facility] Co de Phone Number EXTERNAL NON-INTERFACED REF LAB * (ABNORMAL) Outside Glucose,Fasting (10/04/2021) Pathologist [facility] Glucose, fasting - External 121(A) 65 - 99 mg/dL Result [facility] Historical Provider LAB BLOOD ORDERABLES Laura l Result * Hepatitis C antibody, qualitative (10/04/2021) Result [facility] Jeremy Whalen MD LAB BLOOD ORDERABLES Edited R esult - Final * HM COLONOSCOPY FOR RESULT ENTRY ONLY (09/07/2021) Pathologist [facility] Colonoscopy 5 year recall Result [facility] Historical Provider HEALTH MAINTENANCE Final Result from Last 3 Months or Most Recently Relevant to Health Maintenance Insurance MEDICARE PART A & B MEDICARE SUPPLEMENT MEDICARE PART A & B [facility] MEDICARE SUPPLEMENT [address] [address] MEDICARE SUPPLEMENT [facility] [place] MEDICARE SUPPLEMENT MEDICARE PART A & B [facility] MEDICARE SUPPLEMENT MEDICARE SUPPLEMENT MEDICARE PART A & B [facility] MEDICARE SUPPLEMENT MEDICARE PART A & [place] [address] [address] MEDICARE SUPPLEMENT MEDICARE PART A & B Member Subscriber Plan / Payer (Ef fective 2024-) Name:Arthur Mcdowell Member ID:[id number] Relation to Subscriber:Self Name:Arthur Mcdowell Subscriber ID:[id number] Payer ID:[id number] Group ID:Not on file Type:Medicare Address: [employer] [address] [place] [phone] [facility] MEDICARE SUPPLEMENT Member Subscriber Plan / Payer (Ef fective 2025-Present) Name:Arthur Mcdowell Relation to Subscriber:Self Name:Arthur Mcdowell Payer ID:Not on file Type:Indemnity Address: [place] [id number] Care Teams Screw Machine Set Up Operator Relationship Specialty Start Date End Date Jeremy Whalen MD [address] [place] [email or web address] PCP - General Internal Medicine 12/27/18 Additional Source Comments The information contained in this document represents components of the legal health record. It is not the complete legal health record.[facility]
--- OUTSIDE RECORDS SUMMARY | 2025-04-27 19:03 | XMS_ITS | Encounter Summary ---
Author Organization [facility] Address [address] [place] [address] Phone Care Team Providers Care Computer Lab Aide Name Role Phone Jeremy Whalen MD Primary Care Provider [phone] Encounter Details Date Type Department Care Team (Late st Contact Info) Description 04/07/2025 Orders Only [facility] Internal Medicine [address] [place] [address] Provider, MD Jorgito [address] [place], [place] [id number] Social History Tobacco Use Types Packs/Day Years [...] Description 09/14/2025 8:30 AM EST Office Visit [facility] Internal Medicine [address] [place] [address] Jeremy Whalen MD 40 [place] [address] documented as of this encounter Procedures Procedure Name Priority Date/Time Associated Diagnosis Comments OUTSIDE US IMAGING REPORT ONLY Routine 04/02/2025 10:54 AM EDT documented in this encounter Results * Outside US Imaging??Report Only (04/02/2025 10:54 AM EDT) us Historical Provider MD VALLADARES US OP Final Res ult documented in this encounter Visit Diagnoses Not on filedocumented in this encounter Additional Health Concerns Assessment Noted Time PHQ-2 Depression Total Score: 0 09/05/19 25 12:38 PM EST documented as of this encounter Care Teams Computer Lab Aide Relationship Specialty Start Date End Date Jeremy Whalen MD [address] [place] [address] [email or web address] PCP - General Internal Medicine 12/27/18 documented as of this encounter Additional Source Comments The information contained in this document represents components of the legal health record. It is not the complete legal health record.[facility]
--- OUTSIDE RECORDS SUMMARY | 2025-04-27 19:03 | XMS_ITS | Encounter Summary ---
Author Organization [facility] Address [address] [place] [address] Phone Care Team Providers Care Bessemer Converter Operator Name Role Phone Jeremy Whalen MD Primary Care Provider [phone] Reason for Referral * MRI/CAT Scan - Closed Specialty Diagnoses / Procedures Referred By Contac t Referred To Contact Radiology Procedures Outside CT Abd/pelvis Report Only [facility] Internal Medicine [address] [place] [address] Phone: tel: fax: Referral ID Status Reason Start Date Expiration Date Visits Re quested Visits Authorized [id number] Closed 04/02/2025 1 1 * MRI/CAT Scan - Closed Specialty Diagnoses / Procedures Referred By Contac t Referred To Contact Radiology Procedures Outside CT Abd/pelvis Report Only [facility] Internal Medicine [address] [place] [address] Phone: tel: fax: Referral ID Status Reason Start Date Expiration Date Visits Re quested Visits Authorized [id number] Closed 04/02/2025 1 1 Encounter Details Date Type Department Care Team (Late st Contact Info) Description 04/02/2025 Orders Only [facility] Internal Medicine [address] [place] [address] ProviderJorgito MD [place] [address] Social History Tobacco Use Types Packs/Day Years [...] Description 09/14/2025 8:30 AM EST Office Visit [facility] Internal Medicine [address] [place] [address] Jeremy Whalen MD 40 [place] [address] [email or web address] documented as of this encounter Procedures Procedure Name Priority Date/Time Associated Diagnosis Comments OUTSIDE US IMAGING REPORT ONLY Routine 04/02/2025 7:[address] ABD/PELVIS REPORT ONLY Routine 04/01/2025 7:[address] ABD/PELVIS REPORT ONLY Routine 04/01/2025 7:50 AM EDT documented in this encounter Results * Outside US Imaging??Report Only (04/02/2025 7:53 AM EDT) Historical Provider MD VALLADARES US OP Final Res ult * Outside CT Abd/pelvis Report Only (04/01/2025 7:51 AM EDT) Historical Provider MD VALLADARES CT ABD/PELVIS Final R esult * Outside CT Abd/pelvis Report Only (04/01/2025 7:50 AM EDT) Historical Provider MD VALLADARES CT ABD/PELVIS Final R esult documented in this encounter Visit Diagnoses Not on filedocumented in this encounter Additional Health Concerns Assessment Noted Time PHQ-2 Depression Total Score: 0 09/05/19 25 12:38 PM EST documented as of this encounter Care Teams Bessemer Converter Operator Relationship Specialty Start Date End Date Jeremy Whalen MD [address] [place] [address] [email or web address] PCP - General Internal Medicine 12/27/18 documented as of this encounter Additional Source Comments The information contained in this document represents components of the legal health record. It is not the complete legal health record.[facility]
--- OUTSIDE RECORDS SUMMARY | 2025-04-27 19:03 | XMS_ITS | Encounter Summary ---
Author Organization [facility] Address [address] [facility] [address] [place] [address] Phone Care Team Providers Care Link Assembler Name Role Phone Jeremy Whalen MD Primary Care Provider Reason for Visit * Reason Onset Date Comments Abdominal Discomfort 12/01/2022 Constipation 12/01/2022 Abdominal Pain 12/01/2022 Encounter Details Date Type Department Care Team (Late st Contact Info) Description 12/01/2022 Nurse Triage [facility] Internal Medicine [address] [place] [address] Jeremy Whalen MD [address] [place] [address] [email or web address] Abdominal Discomfort; Constipation (/); Abdominal Pain Social [...] high school, GED, job training, learning the Uzbek language, technical skills, or developing parenting skills)? [...] Disposition Comments: Protocols used: Abdominal Pain - [id number] Initial Symptom Screening and Assessment IA None Care Advice Given Care Advice Patient/Caregiver understands and will follow care advice?: Yes, plans to follow advice SEE IN OFFICE TODAY OR TOMORROW: * You need to be examined. Let me give you an appointment. * IF NO AVAILABLE OFFICE APPOINTMENTS: You need to be seen in an Urgent Care Center. Go to the one at [facility]. Go there today. A nearby Urgent Care [...] 4 weeks.) Protocols used: ABDOMINAL PAIN - [id number] * Jami Moore - 12/01/2022 2:08 PM [...] Description 09/14/2025 8:30 AM EST Office Visit [facility] Internal Medicine [address] [place] [address] Jeremy Whalen MD [address] [place] [address] documented as of this encounter Visit Diagnoses Not on filedocumented in this encounter Additional Health Concerns Assessment Noted Time PHQ-2 Depression Total Score: 0 10/24/19 23 8:32 AM EDT documented as of this encounter Care Teams Link Assembler Relationship Specialty Start Date End Date Jeremy Whalen MD [address] [place] [address] [email or web address] PCP - General Internal Medicine 12/27/18 documented as of this encounter Additional Source Comments The information contained in this document represents components of the legal health record. It is not the complete legal health record.[facility]
--- OUTSIDE RECORDS SUMMARY | 2025-04-27 19:03 | XMS_ITS | Patient Health Record ---
Author Organization [facility] Address [address] [place] [phone] Care Team Providers Care Pants Presser Name Role Phone Jeremy Whalen MD Primary Care Provider Toby Chong Unavailable [phone] Reason For Referral No Information Medications Medication SIG (Take, Route, Fr equency, Duration) Notes Start Date End Date Status Simvastatin Active Omeprazole 20 MG 1 capsule Orally Once a day 06/19 Active Immunizations Vaccine Route Administration Date Status Comme nts Influenza Unknown 04/22/2021 Administered Problems Problem Type SNOMED Code ICD Code Onset Dates Problem Status W/U Status Risk Notes Problem 216289489 Encounter for screening for malignant neoplasm of colon (Z12.11) Active confirmed Problem 028507951 History of adenomatous polyp of colon (Z86.010) Active confirmed Problem Constipation (49805924) Constipation (K59.00) Active confirmed Problem Change in bowel habit (09486500) Change in bowel habits (R19.4) Active confirmed Problem Screening for malignant neoplasm of rectum (656612416) Encounter for screening for malignant neoplasm of rectum (Z12.12) Active confirmed Problem 880521810 Gastroesophageal reflux disease without esophagitis (K21.9) Active confirmed Problem 144338306851003 Preprocedural examination (Z01.818) Active confirmed Problem Diverticulosis of colon (213154560) Diverticulosis of colon (K57.30) Active confirmed Plan [...] Insured Coverage Start Date Coverage End Date [facility] [address] [place] [phone] [id number] MURRAY MCINTOSH Self - patient is the insured Medical (General) History Medical History History ICD Code Hyperlipidemia Gastroesophageal reflux--upp er endoscopy in January of 2011 revealed a small to moderate-sized hiatal hernia, but no evidence of any significant esophagitis nor Davidson's esophagus--gastric biopsies were negative for H. pylori Tubular adenomas removed in 2005 and January 2011--also noted was diverticulosis and internal hemorrhoids Denies IN,DM,CVA,Lung disease,renal dise ase Hyperlipidemia DVT in left leg after his femur surgery in 2014--on Coumadin at that time Negative colonoscopy in 07/2016 Surgical History Surgery Date(Month/Year) Deviated septum Pilonidal cyst Appendectomy Broken left femur 08/2014 3 scopes on knees - Dr. Payne Tibia 1966
--- OUTSIDE RECORDS SUMMARY | 2025-04-27 19:03 | XMS_ITS | Encounter Summary ---
Author Organization [facility] Address [address] [address] Phone Care Team Providers Care Looping Machine Operator Name Role Phone Jeremy Whalen MD Primary Care Provider [phone] Reason for Referral * MRI/CAT Scan - Authorized Specialty Diagnoses / Procedures Referred By Jon bingham Referred To Contact Diagnoses Back pain Procedures MRI Lumbar Spine Virgil Pelayo MD [address] [place], [place] Phone: tel: fax: [email or web address] Referral ID Status Reason Start Date Expiration Date V isits Requested Visits Authorized [id number] Authorized 04/06/2025 04/06/2026 1 1 Reason for Visit * Reason Onset Date Comments Urgent MRI ordered 04/03/2025 Encounter Details Date Type Department Care Team (Late st Contact Info) Description 04/03/2025 Telephone [facility] Internal Medicine [address] [place] [address] Jeremy Whalen MD [address] [place] [email or web address] Urgent MRI ordered Social History Tobacco Use Types Packs/Day Years [...] as of this encounter Progress Notes * Osmani Roy - 04/16/2025 10:44 AM EDT Called and spoke with Marilu at [facility] states she is all set. * Osmani Roy - 04/15/2025 2:54 PM EDT LVM for Marilu stating there is no Beatrice here but asking for call back to find out what the problem is. * Lupillo Flores - 04/15/2025 11:58 AM EDT Marilu from [facility] called in, asked for Beatrice, said she would explain it to her the caller declined to give specifics re: the MRI order. Central Support Hazardous Substances Scientist (Please do not reply to this user; this inbox is not monitored.) Thank you. * Osmani Roy - 04/15/2025 10:32 AM EDT Provider is aware. * Osmani Roy - 04/15/2025 9:52 AM EDT Spoke with provider who states patient should do at [facility] and use Ativan prior. Called and spoke withpatient relayed provider message. Patient is agreeable. He states he does not need a new order. He just needed the order refaxed to [facility] because when they called he had said he did not want it and they discarded the fax. Refaxed as requested. * KaCharisse gordon RN - 04/14/2025 4:14 PM EDT Should a new order be put in because he is asking for an open MRI and this order states [facility]? * Jeremy Whalen MD - 04/14/2025 4:12 PM EDT Why does he need a new order * Kerry Couch - 04/13/2025 3:23 PM EDT Received call from patient, reports he decided to have the MRI but will need a new order. He is wondering if there is somewhere else he can go that is not enclosed or if she should still go to [facility] but take an ativan prior. Request a call to advise. * Bushra Deleon - 04/06/2025 4:37 PM EDT Spoke to patient is aware MRI order faxed and they will contact him to schedule -and he is unsure if he wants to schedule MRI at this time * Bushra Deleon - 04/06/2025 4:32 PM EDT Urgent MRI order w/Prior Auth info faxed to [facility] [phone]/confirmation received * Kerry Couch - 04/06/2025 2:31 PM EDT Images from the original note were not included. Per Virgil Ness MD [facility] F[facility]7 minutes ago (2:22 PM) BS Have triage resend order as urgent status * Bushra Deleon - 04/06/2025 11:40 AM EDT Ordered by Dr Pelayo - please advise if would like this as Urgent and change order from Routine if needed * Kerry Couch - 04/06/2025 8:17 AM EDT Order for MRI is marked routine. Is it supposed to be Urgent? Order faxed to [facility] Scheduling with note regarding PA Dr Pelayo ordered an MRI Lumbar spine to be done at [facility]. No prior authorization required. [id number] * Osmani Roy - 04/03/2025 4:39 PM EDT Urgent MRI ordered to be done at [facility]. To authorization dept to see if PA needed then to schedule [facility] documented in this encounter Plan of Treatment Upcoming Encounters Date Type Department Care Team (Late st Contact Info) Description 09/14/2025 8:30 AM EST Office Visit [facility] Internal Medicine [address] [place] [address] Jeremy Whalen MD [address] [place] [address] documented as of this encounter Procedures Procedure Name Priority Date/Time Associated Diagnosis Comments MRI LUMBAR SPINE Urgent/patient waiting 04/06/2025 3:13 PM EDT Back pain documented in this encounter Visit Diagnoses Diagnosis Back pain- Primary Unspecified backache documented in this encounter Additional Health Concerns Assessment Noted Time PHQ-2 Depression Total Score: 0 09/05/19 25 12:38 PM EST documented as of this encounter Care Teams Looping Machine Operator Relationship Specialty Start Date End Date Jeremy Whalen MD [address] [place] [address] [email or web address] PCP - General Internal Medicine 12/27/18 documented as of this encounter Additional Source Comments The information contained in this document represents components of the legal health record. It is not the complete legal health record.[facility]
== END 2025-04-27 19:00 | disposition home or self-care (01) ==
LOC: HO.MRI 18:59
PROVIDERS: PCP Internal Medicine; Visit Provider Internal Medicine
DX: M54.9 Dorsalgia, unspecified (principal)
CPT/HCPCS: 72148

== ENCOUNTER → 2025-04-27 19:30 | Outpatient (BNV) | payer MEDICARE, OTHER, SELFPAY | PROVIDERS: PCP Internal Medicine; Visit Provider Radiology Vascular & Interventional Radiology | DX: M48.061 Spinal stenosis, lumbar region without neurogenic claudication (principal) | CPT/HCPCS: 72148 ==

== ENCOUNTER 2025-05-08 13:53 | Outpatient (REF) | payer MEDICARE, OTHER, SELFPAY ==
--- NOTE | ~2025-05-08 | US_ITS ---
EXAMINATION: US TRIPLEX LOWER EXTREMITY, LEFT CLINICAL INFORMATION: Left leg pain. COMPARISON: None available. TECHNIQUE: Color-flow triplex imaging with spectral analysis and compression Doppler were performed on the left lower extremity. FINDINGS: Respiratory variation, normal compression and augmented flow are noted throughout the left lower extremity. The visualized common femoral vein, superficial femoral vein, profunda femoral vein, popliteal vein and midcalf peroneal and posterior tibial venous segments show no evidence of deep venous thrombosis. There is no Galicia's cyst. US/US venous duplex LE LT IMPRESSION: No evidence of deep venous thrombosis involving the left lower extremity. Electronically signed by: Jordan Lara MD 05/08/2025 03:24 PM EDT
--- NOTE | ~2025-05-08 | XR_ITS ---
EXAMINATION: XR FEMUR, LEFT CLINICAL INFORMATION: LEFT LEG PAIN COMPARISON: None available. TECHNIQUE: AP and lateral views of the left femur were obtained. FINDINGS: Intramedullary ike and proximal compression/lag screw and 2 distal cortical screws in the left femur. Surgical hardware appears intact. Old healed right proximal femoral shaft fracture. No acute fracture or dislocation or x-ray evidence of loosening. Mild arthritis at the left hip and knee joints. Soft tissue arterial calcification. XR/XR femur LT 2V IMPRESSION: Old healed left proximal femoral shaft fracture. Intact surgical hardware. Mild degenerative changes of the left hip and knee joints. Electronically signed by: Tena Levy MD 05/08/2025 03:25 PM EDT
--- OUTSIDE RECORDS SUMMARY | 2025-05-08 08:00 | XMS_ITS | Encounter Summary ---
Author Organization [facility] Address [address] [facility] [address] [place] [address] Phone Care Team Providers Care Inventory Controller Name Role Phone Jeremy Whalen MD Primary Care Provider [phone] Reason for Referral * Hospital - Outpatient - Closed Specialty Diagnoses / Procedures Referred By Contjess t Referred To Contact Diagnoses Left leg pain Procedures US Lower Extremity Veins Duplex (Left) Jeremy Whalen MD [address] [place] [address] Phone: tel: fax: [email or web address] Referral ID Status Reason Start Date Expiration Date Visits Re quested Visits Authorized [id number] Closed 05/08/2025 1 1 Reason for Visit * Reason Comments Follow-up pinched nerve Lt groin into Lt kne e x5 weeksWas seen at [facility] 04/01/25 CT scan, US taken Encounter Details Date Type Department Care Team (Latest Contact Info) Description 05/08/2025 8:00 AM EDT Office Visit [facility] Internal Medicine [address] [place], [place] [phone] Jeremy Whalen MD [address] [place], [place] [email or web address] Need for prophylactic vaccination and inoculation against influenza (Primary Dx); Left thigh pain; Numbness and tingling of left leg; Left leg pain Social History Tobacco Use Types Packs/Day Years [...] Sign Reading Time Taken Comments Blood Pressure 124/70 05/08/2025 7:59 AM EDT Pulse 67 05/08/2025 7:59 AM EDT Temperature 36.7 C (98 F) 05/08/2025 7:59 AM EDT Respiratory Rate - - Oxygen Saturation 97% 05/08/2025 7:59 AM EDT Inhaled Oxygen Concentration - - Weight 98.7 kg (217 lb 9.6 oz) 05/08/2025 7:59 A M EDT Height 185.9 cm (6' 1.19 ) 05/08/2025 7:59 AM ED T Body Mass Index 28.56 05/08/2025 7:59 AM EDT documented in this encounter Plan of Treatment Upcoming Encounters Date Type Department Care Team (Late st Contact Info) Description 09/14/2025 8:30 AM EST Office Visit [facility] Internal Medicine [address] [place] [address] Jeremy Whalen MD [address] [place] [address] [email or web address] Scheduled Orders Name Type Priority Associated Diagnoses Orde r Schedule CBC and differential Lab Routine Left thigh pain Numbness and tingling of left leg Expected: 05/08/2025, Expires: 05/08/2026 Comprehensive metabolic panel Lab Routine Left thigh pain Numbness and tingling of left leg Expected: 05/08/2025, Expires: 05/08/2026 C-Reactive Protein Lab Routine Left thigh pain Numbness and tingling of left leg Expected: 05/08/2025, Expires: 05/08/2026 Sedimentation rate (ESR) Lab Routine Left thigh pain Numbness and tingling of left leg Expected: 05/08/2025, Expires: 05/08/2026 documented as of this encounter Procedures Procedure Name Priority Date/Time Associated Diagnosis Comments XR FEMUR (LEFT) Urgent/patient waiting 05/08/2025 8:41 AM EDT Left leg pain US LOWER EXTREMITY VEINS DUPLEX (LEFT) Routine 05/08/2025 8:35 AM EDT Left leg pain documented in this encounter Visit Diagnoses Diagnosis Need for prophylactic vaccination and inoculation against influenza- Primary Left thigh pain Pain in soft tissues of limb Numbness and tingling of left leg Disturbance of skin sensation Left leg pain Pain in soft tissues of limb documented in this encounter Additional Health Concerns Assessment Noted Time PHQ-2 Depression Total Score: 0 09/05/19 25 12:38 PM EST documented as of this encounter Care Teams Inventory Controller Relationship Specialty Start Date End Date Jeremy Whalen MD [address] [place] [address] [email or web address] PCP - General Internal Medicine 12/27/18 documented as of this encounter Additional Source Comments The information contained in this document represents components of the legal health record. It is not the complete legal health record.[facility]
[2025-05-08 15:21] LABS: MANUAL DIFF FLAG NO
[2025-05-08 15:49] LABS: Hematocrit 42.1 % (42.0-52.0); Hemoglobin 14.2 g/dl (14.0-18.0); Imm Gran Abs Auto 0.02 X10*3/uL (0.00-0.03); Imm Gran Pct Auto 0.3 % (0.0-0.4); Lymphocytes Absolute Auto 1.9 X10*3/uL (1.2-4.9); Mean Corpuscular HGB Conc 33.7 g/dl (31.0-36.0); Mean Corpuscular Hemoglobin 31.8 pg (27.0-33.0); Mean Corpuscular Volume 94.4 fL (80.0-98.0); NRBC Abs Auto 0.000 X10*3/uL (0.0-0.012); NRBC Pct Auto 0.0 /100WBC (0.0-0.2); Platelet Count 252 X10*3/uL (160-400); Red Blood Count 4.46 X10*6/uL (4.60-5.80); White Blood Count 7.5 X10*3/uL (4.8-10.8)
--- OUTSIDE RECORDS SUMMARY | 2025-05-08 16:20 | XMS_ITS | Encounter Summary ---
Author Organization [facility] Address [address] [facility] [address] [place] [address] Phone Care Team Providers Care Game Tester Name Role Phone Carolin Whalen MD Primary Care Provider [phone] Reason for Visit * Reason Onset Date Comments MRI spine 05/01/2025 Encounter Details Date Type Department Care Team (Late st Contact Info) Description 05/01/2025 Telephone [facility] Internal Medicine [address] [place], [place] [phone] Carolin Whalen MD [address] [place] [address] [email or web address] MRI spine Social History Tobacco Use Types Packs/Day Years [...] encounter Progress Notes * Osmani Roy - 05/05/2025 11:22 AM EDT Patient scheduled at 8:00 on 05/07 * Osmani Roy - 05/05/2025 10:17 AM EDT Per provider he would like to see patient on Sunday (appt spot being held for him). Also would likehim to stay on the current medication until he sees him. Faxed to [facility] for paperwork. * Osmani Roy - 05/05/2025 9:37 AM EDT Spoke to patient and he states that he does not feel the change in medication is helping at all. Hestates he would do a referral to [facility]. He would like to know if he should continue on the medication? Please advise. * Osmani Roy - 05/05/2025 8:35 AM EDT LVM asking for patient to call back. Provider would like to know how patient is doing today. * Carolin Whalen MD - 05/01/2025 7:13 PM EDTAddended by: CAROLIN WHALEN. on: 05/01/2025 07:13 PM Modules accepted: Orders * Carolin Whalen MD - 05/01/2025 7:11 PM EDTAddended by: CAROLIN WHALEN. on: 05/01/2025 07:11 PM Modules accepted: Orders * Carolin Whalen MD - 05/01/2025 6:58 PM EDT Spoke to patient. He will increase the Gabapentin to 600 mg at night, 300 mg other two doses at least through Sunday and let us know if not working. Stop Aleve. Start Diclofenac 75 mg twice a day take with food. Consider referral to [facility]. * Charisse Blandon RN - 05/01/2025 4:09 PM EDT Spoke to Arthur and he does not feel the gabapentin is doing anything for his pain. He is hoping for an answer on something for the pain before the long weekend. He has pain from groin to knee thatfeels similar to a pinched nerve and he does not feel he is getting any benefit from the gabapentin. He has had this pain for over a month now. * Bushra Deleon - 05/01/2025 3:50 PM EDT Patient called back states has been speaking with nurse and would hope to get call back before * Kathryn Ridley RN - 05/01/2025 11:11 AM EDT Spoke to Arthur and advised. He states understanding. States he no longer has testicular pain. Hehas pain from his groin to his knee, on the left side. He states it feels it's similar pain to a pinched nerve in his neck. He does not have any pain on the right side. The pain has been ongoing for about 1 month, he is getting frustrated. He has started the gabapentin, and he doesn't notice any relief from this. Will review with provider. * Virgil Pelayo MD - 05/01/2025 11:06 AM EDT I reviewed the MRI report and nothing in it to suggest the cause of testicular pain but it does show on the lower part of the spine a lot of crowding of the nerve roots leaving the spinal canal alongthe neuroforamen. Particularly the right 1 between L4 and L5. That would make symptoms on the rightleg. None of the findings though are urgent or worrisome. If the patient is not having any leg symptoms and lower back then this can be discussed in a separate office visit. If he still having testicular pain I would at this point suggest seeing urology. If he is having leg pain go we could set up with Dr. Faulkner, neurosurgeon in [facility]. * Osmani Roy - 05/01/2025 10:45 AM EDT Patient called states he had an urgent MRI spine done on Sunday at [facility]. He is looking for the results today as it is a long weekend and he does not want to worry about it. documented in this encounter Plan of Treatment Upcoming Encounters Date Type Department Care Team (Late st Contact Info) Description 09/14/2025 8:30 AM EST Office Visit [facility] Internal Medicine [address] [place] [address] Carolin Whalen MD [address] [place] [address] [email or web address] documented as of this encounter Visit Diagnoses Diagnosis Acute low back pain with left-sided sciatica, unspecified back pain laterality- Primary Testicular pain, left Unspecified disorder of male genital organs documented in this encounter Additional Health Concerns Assessment Noted Time PHQ-2 Depression Total Score: 0 09/05/19 25 12:38 PM EST documented as of this encounter Care Teams Game Tester Relationship Specialty Start Date End Date Carolin Whalen MD [address] [place] [address] [email or web address] PCP - General Internal Medicine 12/27/18 documented as of this encounter Additional Source Comments The information contained in this document represents components of the legal health record. It is not the complete legal health record.[facility]
--- OUTSIDE RECORDS SUMMARY | 2025-05-08 16:21 | XMS_ITS | Encounter Summary ---
Author Organization [facility] Address [address] [facility] [address] [place] [address] Phone Care Team Providers Care Exhibition Organiser Name Role Phone Jeremy Whalen MD Primary Care Provider [phone] Reason for Referral * MRI/CAT Scan - Closed Specialty Diagnoses / Procedures Referred By Jon t Referred To Contact Radiology Procedures Outside MR Spine Report Only [facility] Internal Medicine [address] [place] [address] Phone: tel: fax: Referral ID Status Reason Start Date Expiration Date Visits Re quested Visits Authorized [id number] Closed 04/29/2025 1 1 Encounter Details Date Type Department Care Team (Late st Contact Info) Description 04/29/2025 Orders Only [facility] Internal Medicine [address] [place] [address] Jorgito Perez MD [address] [place] [address] Social History Tobacco Use Types Packs/Day Years [...] Description 09/14/2025 8:30 AM EST Office Visit [facility] Internal Medicine [address] [place] [address] Jeremy Whalen MD [address] [place] [address] [email or web address] documented as of this encounter Procedures Procedure Name Priority Date/Time Associated Diagnosis Comments OUTSIDE MR SPINE REPORT ONLY Routine 04/27/2025 4:38 PM EDT documented in this encounter Results * Outside MR Spine Report Only (04/27/2025 4:38 PM EDT) us Historical Provider MD [facility] MR SPINE Final Res ult documented in this encounter Visit Diagnoses Not on filedocumented in this encounter Additional Health Concerns Assessment Noted Time PHQ-2 Depression Total Score: 0 09/05/19 25 12:38 PM EST documented as of this encounter Care Teams Exhibition Organiser Relationship Specialty Start Date End Date Jeremy Whalen MD [address] [place] [address] [email or web address] PCP - General Internal Medicine 12/27/18 documented as of this encounter Additional Source Comments The information contained in this document represents components of the legal health record. It is not the complete legal health record.[facility]
--- OUTSIDE RECORDS SUMMARY | 2025-05-08 16:21 | XMS_ITS | Patient Health Record ---
Author Organization [facility] Address [address] [place] [phone] Care Team Providers Care Digital Product Specialist Name Role Phone Jeremy Whalen MD Primary Care Provider Toby Chong Unavailable [phone] Reason For Referral No Information Medications Medication SIG (Take, Route, Fr equency, Duration) Notes Start Date End Date Status Simvastatin Active Omeprazole 20 MG 1 capsule Orally Once a day 06/19 Active Immunizations Vaccine Route Administration Date Status Comme nts Influenza Unknown 04/22/2021 Administered Problems Problem Type SNOMED Code ICD Code Onset Dates Problem Status W/U Status Risk Notes Problem Screening for malignant neoplasm of colon (152862062) Encounter for screening for malignant neoplasm of colon (Z12.11) Active confirmed Problem History of adenomatous polyp of colon (237423697) History of adenomatous polyp of colon (Z86.010) Active confirmed Problem Constipation (18266221) Constipation (K59.00) Active confirmed Problem Change in bowel habit (76445188) Change in bowel habits (R19.4) Active confirmed Problem Screening for malignant neoplasm of rectum (761988571) Encounter for screening for malignant neoplasm of rectum (Z12.12) Active confirmed Problem Gastroesophageal reflux disease without esophagitis (351239282) Gastroesophageal reflux disease without esophagitis (K21.9) Active confirmed Problem Preprocedural examination (544335320170010) Preprocedural examination (Z01.818) Active confirmed Problem Diverticulosis of colon (647715888) Diverticulosis of colon (K57.30) Active confirmed Plan [...] Insured Coverage Start Date Coverage End Date [facility] [address] [place] [address] [id number] [address] Self - patient is [...] noted was diverticulosis and internal hemorrhoids Denies GA,DM,CVA,Lung disease,renal dise ase Hyperlipidemia DVT in left leg after his femur surgery in 2014--on Coumadin at that time Negative colonoscopy in 07/2016 Surgical History Surgery Date(Month/Year) Deviated septum Pilonidal cyst Appendectomy Broken left femur 08/2014 3 scopes on knees - Dr. Payne Tibia 1966
--- OUTSIDE RECORDS SUMMARY | 2025-05-08 16:22 | XMS_ITS | Encounter Summary ---
Author Organization [facility] Address [address] [place] [address] Phone Care Team Providers Care Watch Crystal Molder Name Role Phone Jeremy Whalen MD Primary Care Provider [phone] Reason for Referral * MRI/CAT Scan - Closed Specialty Diagnoses / Procedures Referred By Contac t Referred To Contact Radiology Procedures Outside CT Abd/pelvis Report Only [facility] Internal Medicine [address] [place] [address] Phone: tel: fax: Referral ID Status Reason Start Date Expiration Date Visits Re quested Visits Authorized [id number] Closed 04/02/2025 1 1 * MRI/CAT Scan - Closed Specialty Diagnoses / Procedures Referred By Contac t Referred To Contact Radiology Procedures Outside CT Abd/pelvis Report Only [facility] Internal Medicine [address] [place] [address] Phone: tel: fax: Referral ID Status Reason Start Date Expiration Date Visits Re quested Visits Authorized [id number] Closed 04/02/2025 1 1 Encounter Details Date Type Department Care Team (Late st Contact Info) Description 04/02/2025 Orders Only [facility] Internal Medicine [address] [place] [address] ProviderJorgito MD [facility] [place] [address] Social History Tobacco Use Types Packs/Day Years [...] you interested in more education? Not on dimitir e 05/20/2024 Are you concerned about learning? [...] Description 09/14/2025 8:30 AM EST Office Visit [facility] Internal Medicine [address] [place] [address] Jeremy Whalen MD [address] [place] [address] [email or web address] documented as of this encounter Procedures Procedure [...] documented as of this encounter Care Teams Watch Crystal Molder Relationship Specialty Start Date End Date Jeremy Whalen MD [address] [place] [address] [email or web address] PCP - General Internal Medicine 12/27/18 documented as of this encounter Additional Source Comments The information contained in this document represents components of the legal health record. It is not the complete legal health record.[facility]
--- OUTSIDE RECORDS SUMMARY | 2025-05-08 16:22 | XMS_ITS | Encounter Summary ---
Author Organization [facility] Address [address] [facility] [place] [address] Phone Care Team Providers Care Kiln Stoker Name Role Phone Jeremy Whalen MD Primary Care Provider [phone] Encounter Details Date Type Department Care Team (Late st Contact Info) Description 2025 Orders Only [facility] Internal Medicine [address] [place] [address] Provider, MD Jorgito [address] [place], [place] [id number] Social History Tobacco Use Types Packs/Day Years [...] Description 09/14/2025 8:30 AM EST Office Visit [facility] Internal Medicine [address] [place] [address] Jeremy Whalen MD [address] [place] [address] [email or web address] documented as of this encounter Procedures Procedure Name Priority Date/Time Associated Diagnosis Comments OUTSIDE IMAGING Routine 2025 11:39 AM EDT OUTSIDE IMAGING Routine 2025 11:38 AM EDT OUTSIDE IMAGING Routine 2025 11:37 AM EDT OUTSIDE IMAGING Routine 2025 11:35 AM EDT OUTSIDE IMAGING Routine 2025 11:34 AM EDT documented in this encounter Results * Outside Imaging Report Only (2025 11:39 AM EDT) us Historical Provider IMG XR CHEST Final Res ult * Outside Imaging Report Only (2025 11:38 AM EDT) Historical Provider IMG XR CHEST Final Res ult * Outside Imaging Report Only (2025 11:37 AM EDT) Historical Provider IMG XR CHEST Final Res ult * Outside Imaging Report Only (2025 11:35 AM EDT) Historical Provider IMG XR CHEST Final Res ult * Outside Imaging Report Only (2025 11:34 AM EDT) [facility] Provider IMG XR CHEST Final Res ult documented in this encounter Visit Diagnoses Not on filedocumented in this encounter Additional Health Concerns Assessment Noted Time PHQ-2 Depression Total Score: 0 09/05/19 25 12:38 PM EST documented as of this encounter Care Teams Kiln Stoker Relationship Specialty Start Date End Date Jeremy Whalen MD [address] [place] [address] [email or web address] PCP - General Internal Medicine 12/27/18 documented as of this encounter Additional Source Comments The information contained in this document represents components of the legal health record. It is not the complete legal health record.[facility]
--- OUTSIDE RECORDS SUMMARY | 2025-05-08 16:22 | XMS_ITS | Encounter Summary ---
Author Organization [facility] Address [address] [address] Phone Care Team Providers Care Azure Principal Solution Specialist Name Role Phone Jeremy Whalen MD Primary Care Provider [phone] Reason for Referral * MRI/CAT Scan - Authorized Specialty Diagnoses / Procedures Referred By Jon bingham Referred To Contact Diagnoses Back pain Procedures MRI Lumbar Spine Virgil Pelayo MD [address] [place], [place] Phone: tel: fax: [email or web address] Referral ID Status Reason Start Date Expiration Date V isits Requested Visits Authorized [id number] Authorized 04/06/2025 04/06/2026 1 1 Reason for Visit * Reason Onset Date Comments Urgent MRI ordered 04/03/2025 Encounter Details Date Type Department Care Team (Late st Contact Info) Description 04/03/2025 Telephone [facility] Internal Medicine [address] [place] [address] Jeremy Whalen MD [address] [place], [place] [email or web address] Urgent MRI ordered Social History Tobacco Use [...] EDT Called and spoke with Marilu at [facility] states she is all set. * Osmani Roy - 04/15/2025 2:54 PM EDT LVM for Marilu stating there is no Beatrice here but asking for call back to find out what the problem is. * Lupillo Flores - 04/15/2025 11:58 AM EDT Marilu from [facility] called in, asked for Beatrice, said she would explain it to her the caller declined to give specifics re: the MRI order. Central Support Iron Carrier (Please do not reply to this user; this inbox is not monitored.) Thank you. * Osmani Roy - 04/15/2025 10:32 AM EDT Provider is aware. * Osmani Roy - 04/15/2025 9:52 AM EDT Spoke with provider who states patient should do at [facility] and use Ativan prior. Called and spoke withpatient relayed provider message. Patient is agreeable. He states he does not need a new order. He just needed the order refaxed to [facility] because when they called he had said he did not want it and they discarded the fax. Refaxed as requested. * KaCharisse gordon RN - 04/14/2025 4:14 PM EDT Should a new order be put in because he is asking for an open MRI and this order states [facility]? * Jeremy Whalen MD - 04/14/2025 4:12 PM EDT Why does he need a new order * Kerry Couch - 04/13/2025 3:23 PM EDT Received call from patient, reports he decided to have the MRI but will need a new order. He is wondering if there is somewhere else he can go that is not enclosed or if she should still go to [facility] but take an ativan prior. Request a call to advise. * Bushra Deleon - 04/06/2025 4:37 PM EDT Spoke to patient is aware MRI order faxed and they will contact him to schedule -and he is unsure if he wants to schedule MRI at this time * Bushra Deleon - 04/06/2025 4:32 PM EDT Urgent MRI order w/Prior Auth info faxed to [facility] [phone]/confirmation received * Kerry Couch - 04/06/2025 2:31 PM EDT Images from the original note were not included. Per Virgil Ness MD [facility] minutes ago (2:22 PM) BS Have triage resend order as urgent status * Bushra Deelon - 04/06/2025 11:40 AM EDT Ordered by Dr Pelayo - please advise if would like this as Urgent and change order from Routine if needed * Kerry Couch - 04/06/2025 8:17 AM EDT Order for MRI is marked routine. Is it supposed to be Urgent? Order faxed to [facility] Scheduling with note regarding PA Dr Pelayo ordered an MRI Lumbar spine to be done at [facility]. No prior authorization required. [id number] * Osmani Roy - 04/03/2025 4:39 PM EDT Urgent MRI ordered to be done at [facility]. To authorization dept to see if PA needed then to schedule [facility] documented in this encounter Plan of Treatment Upcoming Encounters Date Type Department Care Team (Late st Contact Info) Description 09/14/2025 8:30 AM EST Office Visit [facility] Internal Medicine [address] [place] [address] Jeremy Whalen MD [address] [place] [address] documented as of this encounter Procedures Procedure Name Priority Date/Time Associated Diagnosis Comments MRI LUMBAR SPINE Urgent/patient waiting 04/06/2025 3:13 PM EDT Back pain documented in this encounter Visit Diagnoses Diagnosis Back pain- Primary Unspecified backache documented in this encounter Additional Health Concerns Assessment Noted Time PHQ-2 Depression Total Score: 0 09/05/19 25 12:38 PM EST documented as of this encounter Care Teams Azure Principal Solution Specialist Relationship Specialty Start Date End Date Jeremy Whalen MD [address] [place] [address] [email or web address] PCP - General Internal Medicine 12/27/18 documented as of this encounter Additional Source Comments The information contained in this document represents components of the legal health record. It is not the complete legal health record.[facility]
--- OUTSIDE RECORDS SUMMARY | 2025-05-08 16:22 | XMS_ITS | Encounter Summary ---
Author Organization [facility] Address [address] [place] [address] Phone Care Team Providers Care Tennis Director Name Role Phone Jeremy Whalen MD Primary Care Provider [phone] Encounter Details Date Type Department Care Team (Late st Contact Info) Description 04/07/2025 Orders Only [facility] Internal Medicine [address] [place] [address] Provider, MD Jorgito [address] [place], [place] [id number] Social History Tobacco Use Types Packs/Day Years [...] Description 09/14/2025 8:30 AM EST Office Visit [facility] [place] Internal Medicine [address] [place] [address] Jeremy Whalen MD [address] [place] [address] documented as of this encounter Procedures Procedure [...] documented as of this encounter Care Teams Tennis Director Relationship Specialty Start Date End Date Jeremy Whalen MD [address] [place] [address] [email or web address] PCP - General Internal Medicine 12/27/18 documented as of this encounter Additional Source Comments The information contained in this document represents components of the legal health record. It is not the complete legal health record.[facility]
--- OUTSIDE RECORDS SUMMARY | 2025-05-08 16:22 | XMS_ITS | Encounter Summary ---
Author Organization [facility] Address [address] [facility] [address] [place] [address] Phone Care Team Providers Care Architectural Coating Finisher Name Role Phone Jeremy Whalen MD Primary Care Provider [phone] Reason for Visit * Reason Onset Date Comments Abdominal Discomfort 12/01/2022 Constipation 12/01/2022 Abdominal Pain 12/01/2022 Encounter Details Date Type Department Care Team (Late st Contact Info) Description 12/01/2022 Nurse Triage [facility] Internal Medicine [address] [place] [address] Jeremy Whalen MD [address] [place] [address] [email or web address] Abdominal Discomfort; Constipation (/); Abdominal Pain Social [...] high school, GED, job training, learning the Turkmen language, technical skills, or developing parenting skills)? [...] Disposition Comments: Protocols used: Abdominal Pain - Dciw-Iknmw-Dv Initial Symptom Screening and Assessment IA None Care Advice Given Care Advice Patient/Caregiver understands and will follow care advice?: Yes, plans to follow advice SEE IN OFFICE TODAY OR TOMORROW: * You need to be examined. Let me give you an appointment. * IF NO AVAILABLE OFFICE APPOINTMENTS: You need to be seen in an Urgent Care Center. Go to the one at [facility]. Go there today. A nearby Urgent Care [...] 4 weeks.) Protocols used: ABDOMINAL PAIN - [id number] * Jami Moore - 12/01/2022 2:08 PM [...] 09/14/2025 8:30 AM EST Office Visit [facility] Internal Medicine [address] [place] [address] Jeremy Whalen MD [address] [place] [address] documented as of this encounter Visit Diagnoses Not on filedocumented in this encounter Additional Health Concerns Assessment Noted Time PHQ-2 Depression Total Score: 0 10/24/19 23 8:32 AM EDT documented as of this encounter Care Teams Architectural Coating Finisher Relationship Specialty Start Date End Date Jeremy Whalen MD [address] [place] [address] [email or web address] PCP - General Internal Medicine 12/27/18 documented as of this encounter Additional Source Comments The information contained in this document represents components of the legal health record. It is not the complete legal health record.[facility]
[2025-05-08 17:22] LABS: Alanine Aminotransferase 35 U/L (0-40); Albumin Level 4.4 g/dL (3.5-5.0); Alkaline Phosphatase 77 U/L (39-117); Anion Gap 13 (12-20); Aspartate Amino Transferase 30 U/L (5-37); Blood Urea Nitrogen 16 mg/dL (9-16); Calcium 9.1 mg/dL (8.4-10.2); Carbon Dioxide 26 mmol/L (22-29); Chloride 107 mmol/L (96-108); Estimated Glomerular Filt Rate > 60; Potassium 3.9 mmol/L (3.3-5.1); Sodium 142 mmol/L (135-145); Total Protein 6.9 g/dL (6.5-8.0)
== END 2025-05-08 13:54 | disposition home or self-care (01) ==
LOC: HO.US 13:53
PROVIDERS: PCP Internal Medicine; Visit Provider Internal Medicine
DX: M79.605 Pain in left leg (principal); M79.652 Pain in left thigh; R20.0 Anesthesia of skin; R20.2 Paresthesia of skin
CPT/HCPCS: 36415; 73552; 80053; 85025; 85652; 86140; 93971

== ENCOUNTER → 2025-05-08 14:00 | Outpatient (BNV) | payer MEDICARE, OTHER, SELFPAY | PROVIDERS: PCP Internal Medicine; Visit Provider Radiology Diagnostic Radiology | DX: M79.605 Pain in left leg (principal); S72.002S Fracture of unspecified part of neck of left femur, sequela; M16.12 Unilateral primary osteoarthritis, left hip; M17.0 Bilateral primary osteoarthritis of knee | CPT/HCPCS: 73552; 93971 ==

== ENCOUNTER 2025-06-10 06:33 | Outpatient (REF) | payer MEDICARE, OTHER, SELFPAY ==
[2025-06-10 07:44] LABS: Alanine Aminotransferase 36 U/L (0-40); Albumin Level 4.4 g/dL (3.5-5.0); Alkaline Phosphatase 69 U/L (39-117); Anion Gap 11 (12-20); Aspartate Amino Transferase 29 U/L (5-37); Blood Urea Nitrogen 17 mg/dL (9-16); Calcium 9.6 mg/dL (8.4-10.2); Carbon Dioxide 30 mmol/L (22-29); Chloride 105 mmol/L (96-108); Estimated Glomerular Filt Rate > 60; Potassium 4.4 mmol/L (3.3-5.1); Sodium 142 mmol/L (135-145); Total Protein 7.0 g/dL (6.5-8.0)
--- OUTSIDE RECORDS SUMMARY | 2025-06-10 14:56 | XMS_ITS | Encounter Summary ---
Author Organization [facility] Address [address] [facility] [address] [place] [address] Phone Care Team Providers Care Solution Maker Name Role Phone Jeremy Whalen MD Primary Care Provider [phone] Reason for Visit * Reason Comments Med Change Request Encounter Details Date Type Department Care Team (Late st Contact Info) Description [facility] Internal Medicine [address] [place] [address] Jeremy Whalen MD [address] [place] [address] [email or web address] Med Change Request Social History Tobacco Use Types Packs/Day Years [...] as of this encounter Progress Notes * Shwteha Michel MA - 05/25/2025 2:45 PM EST Contacted pt for dose clarification but states he is no longer using this medication. documented in this encounter Plan of Treatment Upcoming Encounters Date Type Department Care Team (Late st Contact Info) Description 09/14/2025 8:30 AM EST Office Visit [facility] Internal Medicine [address] [place] [address] Jeremy Whalen MD [address] [place] [address] [email or web address] documented as of this encounter Visit Diagnoses Diagnosis Testicular pain, left Unspecified disorder of male genital organs documented in this encounter Additional Health Concerns Assessment Noted Time PHQ-2 Depression Total Score: 0 09/05/19 25 12:38 PM EST documented as of this encounter Care Teams Solution Maker Relationship Specialty Start Date End Date Jeremy Whalen MD [address] [place] [address] [email or web address] PCP - General Internal Medicine 12/27/18 documented as of this encounter Additional Source Comments The information contained in this document represents components of the legal health record. It is not the complete legal health record.[facility]
--- OUTSIDE RECORDS SUMMARY | 2025-06-10 14:57 | XMS_ITS | Encounter Summary ---
Author Organization [facility] Address [address] [address] Phone Care Team Providers Care Learning And Development Associate Name Role Phone Jeermy Whalen MD Primary Care Provider [phone] Reason for Referral * MRI/CAT Scan - Authorized Specialty Diagnoses / Procedures Referred By Jon bingham Referred To Contact Diagnoses Back pain Procedures MRI Lumbar Spine Virgil Pelayo MD [address] [place], [place] Phone: tel: fax: [email or web address] Referral ID Status Reason Start Date Expiration Date V isits Requested Visits Authorized [id number] Authorized 04/06/2025 04/06/2026 1 1 Reason for Visit * Reason Onset Date Comments Urgent MRI ordered 04/03/2025 Encounter Details Date Type Department Care Team (Late st Contact Info) Description 04/03/2025 Telephone [facility] Internal Medicine [address] [place] [address] Jeremy Whalen MD [address] [place], [place] [email or web address] Urgent MRI ordered Social History Tobacco Use [...] EDT Called and spoke with Marilu at [facility] states she is all set. * Osmani Roy - 04/15/2025 2:54 PM EDT LVM for Marilu stating there is no Beatrice here but asking for call back to find out what the problem is. * Lupillo Flores - 04/15/2025 11:58 AM EDT Marilu from [facility] called in, asked for Beatrice, said she would explain it to her the caller declined to give specifics re: the MRI order. Central Support Lead Network Engineer (Please do not reply to this user; this inbox is not monitored.) Thank you. * Osmani Roy - 04/15/2025 10:32 AM EDT Provider is aware. * Osmani Roy - 04/15/2025 9:52 AM EDT Spoke with provider who states patient should do at [facility] and use Ativan prior. Called and spoke withpatient relayed provider message. Patient is agreeable. He states he does not need a new order. He just needed the order refaxed to [facility] because when they called he had said he did not want it and they discarded the fax. Refaxed as requested. * KaCharisse gordon RN - 04/14/2025 4:14 PM EDT Should a new order be put in because he is asking for an open MRI and this order states [facility]? * Jeremy Whalen MD - 04/14/2025 4:12 PM EDT Why does he need a new order * Kerry Couch - 04/13/2025 3:23 PM EDT Received call from patient, reports he decided to have the MRI but will need a new order. He is wondering if there is somewhere else he can go that is not enclosed or if she should still go to [facility] but take an ativan prior. Request a call to advise. * Bushra Deleon - 04/06/2025 4:37 PM EDT Spoke to patient is aware MRI order faxed and they will contact him to schedule -and he is unsure if he wants to schedule MRI at this time * Bushra Deleon - 04/06/2025 4:32 PM EDT Urgent MRI order w/Prior Auth info faxed to [facility] [phone]/confirmation received * Kerry Couch - 04/06/2025 2:31 PM EDT Images from the original note were not included. Per Virgil Ness MD [facility] F[facility]7 minutes ago (2:22 PM) BS Have [...] supposed to be Urgent? Order faxed to [facility] Scheduling with note regarding PA Dr Pelayo ordered an MRI Lumbar spine to be done at [facility]. No prior authorization required. [id number] * Osmani Roy - 04/03/2025 4:39 PM EDT Urgent MRI ordered to be done at [facility]. To authorization dept to see if PA needed then to schedule [facility] documented in this encounter Plan of Treatment Upcoming Encounters Date Type Department Care Team (Late st Contact Info) Description 09/14/2025 8:30 AM EST Office Visit [facility] Internal Medicine [address] [place] [address] Jeremy Whalen MD [address] [place] [address] documented as of this encounter Procedures Procedure Name Priority Date/Time Associated Diagnosis Comments MRI LUMBAR SPINE Urgent/patient waiting 04/06/2025 3:13 PM EDT Back pain documented in this encounter Visit Diagnoses Diagnosis Back pain- Primary Unspecified backache documented in this encounter Additional Health Concerns Assessment Noted Time PHQ-2 Depression Total Score: 0 09/05/19 25 12:38 PM EST documented as of this encounter Care Teams Learning And Development Associate Relationship Specialty Start Date End Date Jeremy Whalen MD [address] [place] [address] [email or web address] PCP - General Internal Medicine 12/27/18 documented as of this encounter Additional Source Comments The information contained in this document represents components of the legal health record. It is not the complete legal health record.[facility]
--- OUTSIDE RECORDS SUMMARY | 2025-06-10 14:57 | XMS_ITS | Patient Health Record ---
Author Organization [facility] Address [address] [place] [id number] Care Team Providers Care Press Worker Helper Name Role Phone Jeremy Whalen MD Primary Care Provider Toby Chong Unavailable [phone] Reason For Referral No Information Medications Medication SIG (Take, Route, Frequency, Duration) Notes Start Date End Date Status Simvastatin Active Omeprazole 20 MG Capsule Delayed Release 1 capsule Orally Once a day 06/19/2012 Active Immunizations Vaccine Route Administration Date Status Comme nts Influenza Unknown 04/22/2021 Administered Social History Social History Additional Details Category Social Info Options Details Miscellaneous: Marital status: 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 Section Notes: Nonsmoker; 10-15 beers on e weekend Nonsmoker; 10-15 beers on e weekend Problems Problem Type SNOMED Code ICD Code Onset Dates Problem Status W/U Status Risk Notes Problem Screening for malignant neoplasm of colon (917838303) Encounter for screening for malignant neoplasm of colon (Z12.11) Active confirmed Problem History of adenomatous polyp of colon (382659693) History of adenomatous polyp of colon (Z86.010) Active confirmed Problem Constipation (45441804) Constipation (K59.00) Active confirmed Problem Change in bowel habit (14385575) Change in bowel habits (R19.4) Active confirmed Problem Screening for malignant neoplasm of rectum (875089826) Encounter for screening for malignant neoplasm of rectum (Z12.12) Active confirmed Problem Gastroesophageal reflux disease without esophagitis (844312514) Gastroesophageal reflux disease without esophagitis (K21.9) Active confirmed Problem Preprocedural examination (220094932214777) Preprocedural examination (Z01.818) Active confirmed Problem Diverticulosis of colon (627918864) Diverticulosis of colon (K57.30) Active confirmed Plan [...] Insured Coverage Start Date Coverage End Date [facility] [address] [place] [phone] [id number] MCINTOSH Self - patient is [...] noted was diverticulosis and internal hemorrhoids Denies [place],DM,CVA,Lung disease,renal dise ase Hyperlipidemia DVT in left leg after his femur surgery in 2014--on Coumadin at that time Negative colonoscopy in 07/2016 Surgical History Surgery Date(Month/Year) Deviated septum Pilonidal cyst Appendectomy Broken left femur 08/2014 3 scopes on knees - Dr. Payne Tibia 1966
--- OUTSIDE RECORDS SUMMARY | 2025-06-10 14:57 | XMS_ITS | Encounter Summary ---
Author Organization [facility] Address [address] [place] [address] Phone Care Team Providers Care Bar Porter Name Role Phone Jeremy Whalen MD Primary Care Provider [phone] Encounter Details Date Type Department Care Team (Late st Contact Info) Description 2025 Orders Only [facility] Internal Medicine [address] [place] [address] Provider, MD Jorgito [address] [place], [place] [id number] Social History Tobacco Use Types Packs/Day Years [...] Description 09/14/2025 8:30 AM EST Office Visit [facility] [place] Internal Medicine [address] [place] [address] Jeremy Whalen MD 40 [place] [address] [email or web address] documented as of this encounter Procedures Procedure [...] Imaging Report Only (2025 11:34 AM EDT) [facility] Provider IMG XR CHEST Final Res ult documented in this encounter Visit Diagnoses Not on filedocumented in this encounter Additional Health Concerns Assessment Noted Time PHQ-2 Depression Total Score: 0 09/05/19 25 12:38 PM EST documented as of this encounter Care Teams Bar Porter Relationship Specialty Start Date End Date Jeremy Whalen MD [address] [place] [address] [email or web address] PCP - General Internal Medicine 12/27/18 documented as of this encounter Additional Source Comments The information contained in this document represents components of the legal health record. It is not the complete legal health record.[facility]
--- OUTSIDE RECORDS SUMMARY | 2025-06-10 14:57 | XMS_ITS | Encounter Summary ---
Author Organization [facility] Address [address] [place] [address] Phone Care Team Providers Care Advanced Practice Psychiatric Nurse Name Role Phone Jeremy Whalen MD Primary Care Provider [phone] Encounter Details Date Type Department Care Team (Late st Contact Info) Description 05/11/2025 Orders Only [facility] Internal Medicine [address] [place] [address] Provider, MD Jorgito [address] [place], [place] [id number] Social History Tobacco Use Types Packs/Day Years [...] Description 09/14/2025 8:30 AM EST Office Visit [facility] [place] Internal Medicine 40 [place] [address] Jeremy Whalen MD 40 [place] [address] [email or web address] documented as of this encounter Procedures Procedure Name Priority Date/Time Associated Diagnosis Comments OUTSIDE LAB Routine 05/08/2025 11:45 AM EDT documented in this encounter Results * Outside Lab (05/08/2025 11:45 AM EDT) us Historical Provider LAB BLOOD BKR ORDERABLES Final Result documented in this encounter Visit Diagnoses Not on filedocumented in this encounter Additional Health Concerns Assessment Noted Time PHQ-2 Depression Total Score: 0 09/05/19 25 12:38 PM EST documented as of this encounter Care Teams Advanced Practice Psychiatric Nurse Relationship Specialty Start Date End Date Jeremy Whalen MD [address] [place] [address] [email or web address] PCP - General Internal Medicine 12/27/18 documented as of this encounter Additional Source Comments The information contained in this document represents components of the legal health record. It is not the complete legal health record.[facility]
--- OUTSIDE RECORDS SUMMARY | 2025-06-10 14:57 | XMS_ITS | Encounter Summary ---
Author Organization [facility] Address [address] [place] [address] Phone Care Team Providers Care Blending Tank Helper Name Role Phone Jeremy Whalen MD Primary Care Provider [phone] Reason for Visit * Reason Onset Date Comments Abdominal Discomfort 12/01/2022 Constipation 12/01/2022 Abdominal Pain 12/01/2022 Encounter Details Date Type Department Care Team (Late st Contact Info) Description 12/01/2022 Nurse Triage [facility] Internal Medicine 40 [place] [address] Jeremy Whalen MD 40 [place] [address] [email or web address] Abdominal Discomfort; Constipation (/); Abdominal Pain [...] high school, GED, job training, learning the Mauritian language, technical skills, or developing parenting skills)? [...] Disposition Comments: Protocols used: Abdominal Pain - [id number] Initial Symptom Screening and Assessment IA None [...] Center. Go to the one at [facility]. Go there today. A nearby Urgent [...] 4 weeks.) Protocols used: ABDOMINAL PAIN - [id number] * Jami Moore - 12/01/2022 2:08 PM [...] Description 09/14/2025 8:30 AM EST Office Visit [facility] Internal Medicine 40 [place] [address] Jeremy Whalen MD 40 [place] [address] documented as of this encounter Visit Diagnoses Not on filedocumented in this encounter Additional Health Concerns Assessment Noted Time PHQ-2 Depression Total Score: 0 10/24/19 23 8:32 AM EDT documented as of this encounter Care Teams Blending Tank Helper Relationship Specialty Start Date End Date Jeremy Whalen MD [address] [place] [address] [email or web address] PCP - General Internal Medicine 12/27/18 documented as of this encounter Additional Source Comments The information contained in this document represents components of the legal health record. It is not the complete legal health record.[facility]
--- OUTSIDE RECORDS SUMMARY | 2025-06-10 14:57 | XMS_ITS | Clinical Summary ---
Author Organization [facility] Address [address] [address] Phone Care Team Providers Care Transportation Lead Name Role Phone Jeremy Whalen MD Primary Care Provider Allergies No known active allergies Medications atorvastatin [...] 45 g 025 Active Additional Information Patient taking differently: 1 ApplicationTopicalAs needed, Reported on 05/08/2025 HYDROmorphone (DILAUDID) 2 MG tablet 025 Active methocarbamoL (ROBAXIN) 750 MG tablet 025 Active methylPREDNISolon e (MEDROL DOSEPACK) 4 mg tablet 025 Active LORazepam (ATIVAN) 1 MG tabletIndications :Anxiety 1 tablet po prn anxiety re mri or flying 20 tablet 025 Active diclofenac sodium (VOLTAREN) 75 MG EC tabletIndications :Acute low back pain with left-sided sciatica, unspecified back pain laterality Take 1 tablet (75 mg total) by mouth 2 (two) times a day with meals. 30 tablet 025 Active gabapentin (NEURONTIN) 300 MG capsuleIndication s:Testicular pain, left 600 mg qhs and 300 mg bid 90 capsule 025 Active Active Problems Problem Noted Date Diagnosed Date [...] with labs exam or imaging. Referral to [facility] urology for further evaluation, we will put this urgently. Empiric pain to be treated with Medrol as he has been taking, Robaxin as a muscle relaxer and if absolutely necessary Dilaudid but he should stop the cuter lack and instead will call in naproxen. I will have the front end java developer try to facilitate the MRI and consult [...] Encounters Date Type Department Care Team Description 05/24/2025 Refill [facility] Internal Medicine [address] [facility] [place] [address] Jeremy Whalen MD Med Change Request 05/13/2025 Telephone [facility] Internal Medicine 40 [facility] [place] [address] Jeremy Whalen MD 05/11/2025 Orders Only [facility] Internal Medicine [address] [facility] [place] [phone] ProviderJorgito MD 05/08/2025 8:00 AM EDT Office Visit [facility] Internal [facility] 40 [place] [address] Jeremy Whalen MD Need for prophylactic vaccination and inoculation against influenza (Primary Dx); Left thigh pain; Numbness and tingling of left leg; Left leg pain 05/08/2025 Orders Only [facility] Internal Medicine [address] [place] [address] Jorgito Perez MD 2025 Orders Only [facility] Internal Medicine [address] [place] [address] Jorgito Perez MD 05/01/2025 Telephone [facility] Internal Medicine [address] [place] [address] Jeremy Whalen MD MRI spine 04/29/2025 Orders Only [facility] Internal Medicine [address] [place] [address] Jorgito Perez MD 04/27/2025 Telephone [facility] Internal Medicine [address] [place] [address] Virgil Pelayo MD 04/27/2025 Telephone [facility] Internal Medicine [address] [place] [address] Jeremy Whalen MD Medication Question 04/09/2025 Telephone [facility] Internal Medicine [address] [place], [place] [phone] Jeremy Whalen MD Medication Refill 04/07/2025 Orders Only [facility] Internal Medicine [address] [place] [address] ProviderJorgito MD 04/03/2025 4:00 PM EDT Office Visit [facility] Internal Medicine [address] [place] [address] Virgil Pelayo MD Testicular pain, left (Primary Dx); Acute left-sided low back pain without sciatica 04/03/2025 Telephone [facility] Internal Medicine [address] [place] [address] Jeremy Whalen MD Urgent MRI ordered 04/02/2025 Orders Only [facility] Internal [facility] [address] [place] [address] ProviderJorgito MD 04/01/2025 1:55 PM EDT - 04/01/2025 11:59 PM EDT Hospital Encounter [facility] [place] [address] [place] [address] Virgil Pelayo MD Discharge Disposition: Home or Self Care 04/01/2025 1:15 PM EDT Office Visit [facility] Internal Medicine [address] [place] [address] Virgil Pelayo MD Left testicular pain (Primary Dx) 04/01/2025 Telephone [facility] Internal Medicine [address] [place] [address] Jeremy Whalen MD Testicle Pain from Last 3 Months Immunizations Immunization Administration Dates Next Due COVID-19 (Pre-05/14) Moderna Vaccine, Bivalent 6mo+ 05/01/2022 COVID-19 (Pre-05/14) Moderna Vaccine, mRNA, PF 10/11/2020,09/13/2020 INFLUENZA, SPLIT VIRUS, TRIV ALENT W/ PRESERVATIVE IM 04/22/2021,05/24/2015,09/12/2014 Influenza High-Dose Quadriva lent Preservative Free IM 05/22/2023,05/01/2022,04/07/2021 Influenza High-Dose Trivalen t Preservative Free IM 05/08/2025,06/04/2024 Influenza Quadrivalent MDCK Preservative Free IM 06/22/2017 [...] F) 05/08/2025 7:59 AM EDT Respiratory Rate 16 04/03/2025 4:06 PM EDT Oxygen Saturation 97% 05/08/2025 7:59 AM EDT Inhaled Oxygen Concentration - - Weight 98.7 kg (217 lb 9.6 oz) 05/08/2025 7:59 A M EDT Height 185.9 cm (6' 1.19 ) 05/08/2025 7:59 AM ED T Body Mass Index 28.56 05/08/2025 7:59 AM EDT Plan of Treatment Upcoming Encounters Date Type Department Care Team (Late st Contact Info) Description 09/14/2025 8:30 AM EST Office Visit [facility] [place] Internal Medicine [address] [place] [address] Jeremy Whalen MD 40 [place] [address] [email or web address] Health Maintenance Due Date Last Done Comments HEPATITIS A VACCINES (1 of 2 - Risk 2-dose series) 1974 COLOGUARD 2000 FIT TEST 2000 FOBT 2000 SIGMOIDOSCOPY 2000 VIRTUAL COLONOSCOPY 2000 COVID-19 VACCINE ( season) 2025 06/12/2024, 05/01/2022, 10/31/2021, Additional history exists DEPRESSION SCREENING 09/05/2025 09/05/2024 COLONOSCOPY 09/07/2026 09/07/2021, 08/17/2016 COLORECTAL CANCER SCREENING 09/07/2026 Adult Td,Tdap Booster 05/31/2028 05/31/2018 LIPID PANEL 11/04/2029 11/04/2024, 10/21, 11/04/2024, Additional history exists ZOSTER VACCINES Completed 05/10/2020, 03/09/2020 HEPATITIS C SCREENING Completed 10/04/2021 PNEUMOCOCCAL VACCINES (50+ years) Completed 05/19/2022, 04/25/2021 RSV VACCINE Completed 06/12/2024 INFLUENZA VACCINE Completed 05/08/2025, , 05/22/2023, Additional history exists SMOKING STATUS SCREENING (Once After 26 Yrs) Completed 05/08/2025 HIB VACCINES Aged Out No longer eligi ble based on patient's age to complete this topic MENINGOCOCCAL VACCINES (ACWY) Aged Out No longer eligible based on patient's age to complete this topic MENINGOCOCCAL VACCINES (B) Aged Out N o longer eligible based on patient's age to complete this topic Medical Devices Not on file Procedures Procedure Name Priority Date/Time Associated Diagnosis Comments OUTSIDE XR EXTREMITY LOWER REPORT ONLY Routine 05/08/2025 4:59 PM EDT OUTSIDE US IMAGING REPORT ONLY Routine 05/08/2025 4:52 PM EDT OUTSIDE LAB Routine 05/08/2025 11:45 AM EDT XR FEMUR (LEFT) Urgent/patient waiting 05/08/2025 8:41 AM EDT Left leg pain US LOWER EXTREMITY VEINS DUPLEX (LEFT) Routine 05/08/2025 8:35 AM EDT Left leg pain OUTSIDE IMAGING Routine 2025 11:39 AM EDT OUTSIDE IMAGING Routine 2025 11:38 AM EDT OUTSIDE IMAGING Routine 2025 11:37 AM EDT OUTSIDE IMAGING Routine 2025 11:35 AM EDT OUTSIDE IMAGING Routine 2025 11:34 AM EDT OUTSIDE MR SPINE REPORT ONLY Routine 04/27/2025 4:38 PM EDT MRI LUMBAR SPINE Urgent/patient waiting 04/06/2025 3:13 PM EDT Back pain MRI LUMBAR SPINE Routine 04/03/2025 4:35 PM EDT Acute left-sided low back pain without sciatica OUTSIDE US IMAGING REPORT ONLY Routine 04/02/2025 10:54 AM EDT OUTSIDE US IMAGING REPORT ONLY Routine 04/02/2025 7:53 AM EDT C-REACTIVE PROTEIN (CRP) Routine 04/01/2025 1:57 PM EDT Left testicular pain CBC Routine 04/01/2025 1:57 PM EDT Left testicular pain OUTSIDE CT ABD/PELVIS REPORT ONLY Routine 04/01/2025 7:[address] ABD/PELVIS REPORT ONLY Routine 04/01/2025 7:50 AM EDT OUTSIDE HDL Routine 11/04/2024 HEPATITIS C ANTIBODY, QUALITATIVE Routine 10/04/2021 HM COLONOSCOPY FOR RESULT ENTRY ONLY Routine 09/07/2021 from Last 3 Months or Most Recently Relevant to Health Maintenance Results * Outside XR Extremity Lower Report Only (05/08/2025 4:59 PM EDT) us Historical Provider MD VALLADARES XR LOWER EXTREMITY Fi nal Result * Outside US Imaging??Report Only (05/08/2025 4:52 PM EDT) Historical Provider IMG US OP Final Res ult * Outside Lab (05/08/2025 11:45 AM EDT) Historical Provider LAB BLOOD BKR ORDERABLES Final Result * Outside Imaging Report Only (2025 11:39 AM EDT) Historical Provider IMG XR CHEST [...] Imaging Report Only (2025 11:34 AM EDT) Historical Provider IMG XR CHEST Final Res ult * Outside MR Spine Report Only (04/27/2025 4:38 PM EDT) Historical Provider IMG MR SPINE Final Res ult * Outside US Imaging??Report Only (04/02/2025 10:54 AM EDT) Historical Provider IMG US OP Final Res ult * Outside US Imaging??Report Only (04/02/2025 7:53 AM EDT) Historical Provider IMG US OP Final Res ult * (ABNORMAL) CBC (04/01/2025 1:57 PM EDT) WBC 5.56 4.00 - 11.00 K/uL [facility] RBC 4.57 4.50 - 5.90 M/uL [facility] HGB 14.7 13.5 - 17.5 g/dL [facility] HCT 44.0 41.0 - 53.0 % [facility] PLT 235 150 - 450 K/uL [facility] MCV 96.3 80.0 - 100.0 fL [facility] MCH 32.2(H) 27.0 - 31.0 pg [facility] MCHC 33.4 32.0 - 36.0 g/dL [facility] RDW 12.3 11.5 - 14.5 % [facility] MPV 10.9 8.4 - 12.0 fL [facility] NRBC 0.00 0.00 /100 WBCs [facility] ABSOLUTE NRBC 0.00 0.00 K/uL [facility] Blood 04/01/2025 1:57 PM EDT 04/01/2025 2:01 PM EDT us Virgil Pelayo MD LAB BLOOD BKR ORDERABLES Final R esult [address] [address] * C-Reactive Protein (04/01/2025 1:57 PM EDT) C REACTIVE PROTEIN <3.0 0.0 - 4.0 mg/L [facility] Blood 04/01/2025 1:57 PM EDT 04/01/2025 2:01 PM EDT Virgil Pelayo MD LAB BLOOD BKR ORDERABLES Final R esult Performing Organization Address City/[facility]/ZIP Co de Phone Number [address] [address] * Outside CT Abd/pelvis Report Only (04/01/2025 7:51 AM EDT) us Historical Provider MD IMG CT ABD/PELVIS Final R esult * Outside CT Abd/pelvis Report Only (04/01/2025 7:50 AM EDT) Historical Provider MD VALLADARES CT ABD/PELVIS Final R esult * Outside HDL (11/04/2024) HDL - External 42 40 - 80 mg/dL EXTERNAL NON-INTERFACED REF LAB Historical Provider LAB BLOOD ORDERABLES Laura l Result EXTERNAL NON-INTERFACED REF LAB * Hepatitis C antibody, qualitative (10/04/2021) Jeremy Whalen MD LAB BLOOD BKR ORDERABLES Edit ed Result - Final * HM COLONOSCOPY FOR RESULT ENTRY ONLY (09/07/2021) Pathologist [facility] Colonoscopy 5 year recall Historical Provider HEALTH MAINTENANCE Final Result from Last 3 Months or Most Recently Relevant to Health Maintenance Insurance MED[place] PART [place] [id number] [facility] MEDICARE SUPPLEMENT MEDICARE PART A & B [facility] MEDICARE SUPPLEMENT [facility] MEDICARE SUPPLEMENT [facility] MEDICARE SUPPLEMENT MEDICARE PART A & B [facility] MEDICARE SUPPLEMENT [facility] MEDICARE SUPPLEMENT MEDICARE PART A & B MEDICARE SUPPLEMENT MEDICARE PART A & B MEDICARE SUPPLEMENT MEDICARE PART A & B [facility] MEDICARE SUPPLEMENT Care Teams Transportation Lead Relationship Specialty Start Date End Date Jeremy Whalen MD [address] [place] [phone] [email or web address] PCP - General Internal Medicine 12/27/18 Additional Source Comments The information contained in this document represents components of the legal health record. It is not the complete legal health record.[facility]
--- OUTSIDE RECORDS SUMMARY | 2025-06-10 14:57 | XMS_ITS | Encounter Summary ---
Author Organization [facility] Address [address] [place] [address] Phone Care Team Providers Care Tag Writer Name Role Phone Jeremy Whalen MD Primary Care Provider [phone] Encounter Details Date Type Department Care Team (Late st Contact Info) Description 05/08/2025 Orders Only [facility] Internal Medicine [address] [place] [address] Provider, MD Jorgito [address] [place], [place] [id number] Social History Tobacco Use Types Packs/Day Years [...] Description 09/14/2025 8:30 AM EST Office Visit [facility] [place] Internal Medicine [address] [place] [address] Jeremy Whalen MD [address] [place] [address] [email or web address] documented as of this encounter Procedures Procedure Name Priority Date/Time Associated Diagnosis Comments OUTSIDE XR EXTREMITY LOWER REPORT ONLY Routine 05/08/2025 4:59 PM EDT OUTSIDE US IMAGING REPORT ONLY Routine 05/08/2025 4:52 PM EDT documented in this encounter Results * Outside XR Extremity Lower Report Only (05/08/2025 4:59 PM EDT) us Historical Provider MD VALLADARES XR LOWER EXTREMITY Fi nal Result * Outside US Imaging??Report Only (05/08/2025 4:52 PM EDT) us Historical Provider MD VALLADARES US OP Final Res ult documented in this encounter Visit Diagnoses Not on filedocumented in this encounter Additional Health Concerns Assessment Noted Time PHQ-2 Depression Total Score: 0 09/05/19 25 12:38 PM EST documented as of this encounter Care Teams Tag Writer Relationship Specialty Start Date End Date Jeremy Whalen MD [address] [place] [address] [email or web address] PCP - General Internal Medicine 12/27/18 documented as of this encounter Additional Source Comments The information contained in this document represents components of the legal health record. It is not the complete legal health record.[facility]
== END 2025-06-10 06:34 | disposition home or self-care (01) ==
LOC: HO.LAB 06:33
PROVIDERS: PCP Internal Medicine; Visit Provider Internal Medicine
DX: K21.9 Gastro-esophageal reflux disease without esophagitis (principal); R73.01 Impaired fasting glucose; E78.00 Pure hypercholesterolemia, unspecified
CPT/HCPCS: 36415; 80053; 83036